=== PATIENT | male | born 1950 ===

== ENCOUNTER 2019-08-30 20:34 | Inpatient (IN) | payer OTHER ==
[~2019-08-30 20:34] MED LIST: Iopamidol-370 76% 500 ML 1 ML ONE
[2019-08-30 21:52] LABS: #Basophils 0.1 thou/uL (0.0-0.2); #Eosinphils 0.1 thou/uL (0.0-0.7); #Lymphocytes 2.5 thou/uL (1.20-3.40); #Monocytes 0.7 thou/uL (0.11-0.59); #Neutrophils 4.1 thou/uL (1.40-6.50); %Basophils 0.8 % (0.0-1.0); %Eosinophils 1.3 % (0.0-10.0); %Lymphocytes 33.7 % (21.0-51.0); %Monocytes 9.3 % (0.0-10.0); %Neutrophils 54.9 % (42.0-75.0); Hemoglobin 15.6 g/dL (14.0-18.0); Mean Corpuscular HGB CONC 33.2 g/dL (32.0-36.0); Mean Corpuscular Hemoglobin 29.9 pg (27.0-31.0); Mean Corpuscular Volume 90.2 fL (78.0-98.0); Platelet Count 207 thou/uL (130-400); RBC Distribution Width 13.3 % (11.5-14.5); Red Blood Cell (RBC) Count 5.21 mill/uL (4.70-6.10); White Blood Cell (WBC) Count 7.4 thou/uL (4.8-10.8)
[2019-08-30 21:54] LABS: Bacteria/HPF 4+ HPF (None Seen); Bilirubin Negative (Negative); Blood, Urine Trace (Negative); Clarity Turbid (Clear); Glucose, Urine (Dipstick) Normal (Negative); Ketone, Urine Negative (Negative); Leukocyte 500 Leu/uL (Negative); Nitrite 1+ (Negative); Protein, Urine (Dipstick) 50 mg/dL (Neg-Trace); Specific Gravity, Urine 1.019 (1.002-1.036); Squamous Epithelial None Seen HPF (0-3); Urobilinogen Normal mg/dL (Less than 2); WBC/HPF Greater than 50 HPF (0-3); pH, Urine 5.5 (5.0-9.0)
[2019-08-30] MEDS ORDERED: niCARdipine 20MG In NaCl 20 MG/200 ML BAG ONE (21:54)
[2019-08-30 22:14] LABS: ALT (SGPT) 26 U/L (8-55); AST (SGOT) 24 U/L (5-34); Alkaline Phosphatase 117 U/L (40-110); Anion Gap 15 mmol/L (10-20); BUN (Urea Nitrogen) 40 mg/dL (8.4-25.7); Bilirubin, Total 0.9 mg/dL (0.2-1.2); Calc. Creatinine Clearance 0 mL/min (70-130); Calcium 9.2 mg/dL (7.8-10.44); Carbon Dioxide 23 mmol/L (23-31); Chloride 105 mmol/L (98-107); Estimated GFR-MDRD 49; Glucose 94 mg/dL (80-115); Magnesium 2.2 mg/dL (1.6-2.6); Potassium 4.4 mmol/L (3.5-5.1); Sodium 139 mmol/L (136-145)
[2019-08-30] MEDS ORDERED: Morphine 4 MG/ML VIAL ONE (22:44)
[2019-08-30] MEDS ORDERED: cefTRIAXone\\ROCEPHIN 1 GM VIAL ONE (22:45)
--- NOTE | 2019-08-30 23:20 | CT ---
CT HEAD WITHOUT IV CONTRAST COMPARISON: None HISTORY: Altered mental status TECHNIQUE: Axial CT imaging at 5 mm intervals from vertex through skull base without contrast FINDINGS: There is mild cerebral volume loss. The ventricular system is dilated and out of proportion to the de gree of sulcal atrophy. This could be related to greater central cerebral atrophy, but normal pressure hydrocephalus is a possibility. There is confluent diminished attenuation in the periventric ular white matter which is most likely reflective of chronic small vessel ischemic changes. This is not thought to be related to transependymal flow of CSF. Low-density foci are seen in each thalamus related to lacunar infarctions of indeterminate age. There is no evidence of an acute cortical infarction, hemorrhage, mass effect, or midline shift. Visualized paranasal sinuses are clear. Osseous structures appear intact. IMPRESSION: 1. No acute intracranial abnormality demonstrated. 2. Chronic small vessel ischemic changes and cerebral volume loss. 3. Dilatation of the ventricular system which is out of proportion to the degree of sulcal atrophy. F indings may be related to greater central cerebral atrophy, but an element of normal pressure hydrocephalus is a possibility. 4. Lacunar infarctions in each thalamus of indeterminate age.
--- NOTE | 2019-08-30 23:32 | CT ---
EXAM: CT Aortic Dissection Protocol PROVIDED CLINICAL HISTORY: Patient with back pain and altered mental status. COMPARISON: None FINDINGS: Thoracic and abdominal aorta are normal in caliber. There is atherosclerotic plaque as well as athero sclerotic calcification seen in thoracic as well as involving the abdominal aorta and limited visualized iliac arteries. There is mild narrowing involving the most proximal celiac artery which may related to arcuate ligame nt. The inferior mesenteric artery is patent. Mild inflammatory stranding is seen surrounding the superior mesenteric artery greater inferior to the superior mesenteric artery which is nonspecific. T here is mild luminal narrowing involving the most proximal superior mesenteric artery. Findings could be related to vasculitis. Incidental note is made of a replaced right hepatic artery. Single pa tent bilateral renal arteries are visualized. Although there is mild atherosclerotic plaque along the common iliac arteries, no significant stenosi s is seen. No filling defects are seen in the central pulmonary arteries. However, the segmental and subsegmenta l pulmonary arteries are not well opacified for more adequate evaluation. Mildly prominent nonspecific right paratracheal lymph node is present measuring 12 mm in short axis d imension. Distal nonspecific nonenlarged mediastinal lymph nodes are also present. Emphysematous changes are seen within the lungs bilaterally greatest in the upper lobes. There are gr oundglass densities seen throughout the lungs which is nonspecific but may be attributable to volume loss as this exam is obtained in expiratory phase of imaging. The liver, spleen, pancreas, and left adrenal gland demonstrate a normal CT appearance. There is a small 1.3 cm nodule involving the right adrenal gland which does demonstrate attenuation c oefficient suggestive of an adrenal adenoma. There is mild bilateral hydronephrosis and mild dilatation of the visualized proximal ureters. 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 A proximally 3 mm nonobstructing calculus is present in the midportion right kidney. There is mild increased number of aortocaval lymph nodes which are not particularly enlarged. No free fluid or fluid collection is seen in the abdomen. IMPRESSION: 1. Inflammatory stranding seen adjacent to the proximal superior mesenteric artery with suggestion of slight wall thickening of the superior mesenteric artery in this region and mild narrowing of the lumen. Findings are overall nonspecific but may be related to vasculitis. 2. Mild increased number of aortocaval lymph nodes just inferior to the inflammatory stranding adjace nt to the superior mesenteric artery which may be reactive. 3. Thoracic and abdominal aorta are normal in caliber without evidence of an aortic dissection. Ather osclerotic vascular calcifications and plaque are seen. 4. Mild bilateral hydronephrosis and hydroureter of uncertain etiology. The mid and distal ureters ar e not imaged. 5. Nonobstructing right renal calculus.
[2019-08-31 00:09] LABS: SARS-CoV-2 NAA Rapid Test Not Detected (NotDetected)
--- NOTE | 2019-08-31 00:42 | PDOC.FPRHP ---
- History of Present Illness Chief Complaint: AMS History of Present Illness: Patient presents altered from long-term for UTI symptoms. Minimal history obtained from jail guard. Per the notes patient is normally alert and oriented however over the past several days has developed altered mental status and according to the guards he is not at his baseline. He has had elevated blood pressures over the past few days. He does have history of patel-resistant UTI in June. He states that he is urinating more than normal but denies fever, chills. Patients states he has had back pain for years, noting it has worsened as he ages. Patient notes he has chest pain and difficulty breathing chronically, but no new worsening of those symptoms. - Allergies/Adverse Reactions Allergies Allergy/AdvReac Type Severity Reaction Status Date / Time No Known Drug Allergies Allergy Unverified 08/31/19 02:11 - History PMHx: HTN PSHx: none FHx: unknown Social: used to smoke 1PPD x 30 years, heavy beer drinker - last one 20 years ago, no drug use - Review of Systems General: denies: fever/chills, night sweats Eyes: reports: other (chronic poor vision). denies: eye pain ENT: reports: other (chronic hearing difficulty). denies: nasal congestion, rhinorrhea Respiratory: reports: shortness of breath (chronic). denies: cough, congestion Cardiovascular: reports: chest pain (chronic) Gastrointestinal: denies: nausea, vomiting, diarrhea Genitourinary: reports: other (urinary frequency). denies: incontinence Skin: reports: rashes (on chest, itchy, has had for 2-3 years and has medications; notes he gets rashes on his elbows and face). denies: jaundice Musculoskeletal: denies: pain, tenderness Neurological: reports: other (confusion). denies: numbness, syncope Psychological: denies: anxiety, depression - Vital signs BP: 223/101, Pulse: 64, Resp: 18, Temp: 98.3 (Oral), Pain: 0, O2 sat: 98 on ( Room Air), BP: 185/89, Pulse: 66, Resp: 22, O2 sat: 98 on (Room Air), Time: 08/30/2019 22: 15. BP: 200/105, Pulse: 65, Resp: 23, O2 sat: 97 on (Room Air), Time: 08/30/2019 22: 00. BP: 233/104, MAP: 147, Pulse: 74, Resp: 27, O2 sat: 98 on (Room Air), Time: 08/29 21:30. BP: 200/101, Pulse: 63, Resp: 22, O2 sat: 98 on (Room Air), Time: 08/30/2019 21: 00. BP: 185/89, Time: 08/30/2019 22:16. BP: 205/95, Time: 08/30/2019 22:32. BP: 206/150, MAP: 168, Pulse: 78, Resp: 21, O2 sat: 98 on (Room Air), Time: 08/29 22:45. BP: 192/94, MAP: 126, Pulse: 75, Time: 08/30/2019 23:00. BP: 181/85, MAP: 117, Pulse: 81, Resp: 22, O2 sat: 99 on (Room Air), Time: 2019 23:15. BP: 205/95, Time: 08/30/2019 22:35. BP: 180/111, Time: 08/30/2019 23:33. BP: 172/72, Time: 08/30/2019 23:45. BP: 170/82, Pulse: 86, Resp: 20, O2 sat: 96 on (Room Air), Time: 08/31/2019 00: 15. BP: 172/98, Pulse: 80, Resp: 20, Temp: 98.5 (Oral), Pain: 0, O2 sat: 98 on ( Room Air), Time: 08/31/2019 00:30. Wt: 63.5 - Physical Exam Constitutional: NAD, other (AxO x 2) HEENT: normocephalic and atraumatic, other (L eye, decreased vision, L pupil reactive to light, pupil is elongated) Neck: supple, FROM Heart: RRR, no murmurs/rubs/gallops Lungs: CTAB, no respiratory distress Abdomen: soft, non-tender, bowel sounds present Musculoskeletal: ROM grossly normal Neurological: no focal deficit Skin: no jaundice, other (erythematous, dry, scaling rash on chest and face. Excoriation present on chest.) Heme/Lymphatic: no unusual bruising or bleeding, no purpura, no petechia Psychiatric: intact recent and remote memory FMR H&P: Results - Labs Result Diagrams: 08/30/19 21:44 08/30/19 21:44 Lab results: WBC 7.4 thou/uL (4.8-10.8) 08/30/19 21:44 Hgb 15.6 g/dL (14.0-18.0) 08/30/19 21:44 Hct 46.9 % (42.0-52.0) 08/30/19 21:44 MCV 90.2 fL (78.0-98.0) 08/30/19 21:44 Plt Count 207 thou/uL (130-400) 08/30/19 21:44 Neutrophils % 54.9 % (42.0-75.0) 08/30/19 21:44 Sodium 139 mmol/L (136-145) 08/30/19 21:44 Potassium 4.4 mmol/L (3.5-5.1) 08/30/19 21:44 Chloride 105 mmol/L (98-107) 08/30/19 21:44 Carbon Dioxide 23 mmol/L (23-31) 08/30/19 21:44 BUN 40 mg/dL (8.4-25.7) H 08/30/19 21:44 Creatinine 1.43 mg/dL (0.7-1.3) H 08/30/19 21:44 Glucose 94 mg/dL (80-115) 08/30/19 21:44 Lactic Acid 0.9 mmol/L (0.5-2.2) 08/30/19 21:44 Calcium 9.2 mg/dL (7.8-10.44) 08/30/19 21:44 Total Bilirubin 0.9 mg/dL (0.2-1.2) 08/30/19 21:44 AST 24 U/L (5-34) 08/30/19 21:44 ALT 26 U/L (8-55) 08/30/19 21:44 Alkaline Phosphatase 117 U/L (40-110) H 08/30/19 21:44 B-Natriuretic Peptide 196.4 pg/mL (0-100) H 08/30/19 21:44 Serum Total Protein 7.0 g/dL (5.8-8.1) 08/30/19 21:44 Albumin 4.0 g/dL (3.4-4.8) 08/30/19 21:44 Urine Ketones Negative mg/dL (Negative) 08/30/19 21: Urine Blood Trace (Negative) A 08/30/19 21: Urine Nitrite 1+ (Negative) A 08/30/19 21: Ur Leukocyte Esterase 500 Carol/uL (Negative) A 08/30/19: Urine RBC 7-10 HPF (0-3) A 08/30/19: Urine WBC Greater than 50 HPF (0-3) A 08/30/19 21: Ur Squamous Epith Cells None Seen HPF (0-3) 08/30/19: Urine Bacteria 4+ HPF (None Seen) A 08/30/19: troponin negative, repeat 0.029 - Radiology Interpretation CT scan - abdomen Status: image reviewed by me, report reviewed by me Additional comment: no AAA, SMA with irritation and regional lymph node involvement CT scan - head Status: image reviewed by me, report reviewed by me Additional comment: ventriculomegaly, no acute hemorrhage, old lacunar infarcts present FMR H&P: A/P - Plan This is a 69 yo M being admitted for HTN emergency. He has a pertinent history including: recurrent UTIs, HTN, DMII Consults: none SOFTWARE DEVELOPMENT COORDINATOR - Encephalopathy 2/2 HTN, may also be caused by infection, NPH, PRES - CTH showing ventriculomegaly Resp - O2 sats wnl on RA CV - Continue Cardene drip, wean as tolerated - Lisinopril 40 mg - Home BP medications, increase amlodipine 10 GI - SMA showing irritation with regional lymph node involvement - HCV, unclear if treated or not, normal liver enzymes /Renal - I/O: Strict - Recurrent UTI hx with CT showing mild blt hydronephrosis, prior records showing past UTI patel resistant, susceptible to imipenem and amikacin - asymptomatic bacteriuria, consider starting meropenem and ID consult if symptoms change/patient becomes febrile Infection -asymptomatic bacteriuria, if symptoms present, treat for UTI Endo - mild SSI Skin - rash likely seborrheic dermatitis - steroid/antifungal creme Lines/Tubes: 2 PIV Code status: DNR PPx: Lovenox Dispo: Admit to ICU for BP management on Cardene drip, LOS >48 hrs FMR H&P: Upper Level - Plan Date/Time: 08/31/19 0040 I, Alina Carballo MD, have evaluated this patient and agree with findings/plan as outlined by undergraduate internship resident. Pertinent changes/additions are listed here. This is a 69yo M who presents to the ER from [facility]. Minimal hx able to be obtained. Per the notes, patient is normally alert and oriented, but over the last several days has becomed altered. Patient also had elevated blood pressures over the past few days. Patient also complaining of back pain and confusion. He has a hx of UTI but his last notes with a positive UTI were from June and not current this UTI was patel resistant except for 1-2 abx. Denied any dysuria or blood in urine. Denies fever, chills. Patient reports vision loss in his L eye, but this has been present for 2 years. He denies SOB, chest pain, palpitations. Endorses "smokers cough." PHYSICAL EXAMINATION: General: NAD, alert and oriented x3 HEENT: EOMI; pupil on L ovoid and catarct present; nml R eye Neck: Supple. Full ROM. Heart/Cardiovascular System: RRR, Cap refill < 3 seconds, no rub, no murmur Lungs/Respiratory System: clear to auscultation bilaterally. No increased work of breathing. Room air. Abdomen/Gastro-Intestinal System: no abdominal tenderness, normal bowel sounds, no masses, no organomegaly Extremeties: Warm extremities. No cyanosis or edema. Neuro: No gross deficits appreciated Psychiatry: Awake, Alert and cooperative with exam Skin/ Integumentory: erythematous, scaly rash on ant chest and along hairline and nose on face Musculoskeletal: Full ROM, strength 4/5 in b/l LE This is a 69 yo M/F being admitted for HTN emergency. Consults: PT/OT SOFTWARE DEVELOPMENT COORDINATOR: - CT head: enlarged ventricles, lacunar infarctions in each thalamus. Possible NPH. Consider further work up with MRI, LP. Consider neuro consult. Patient with gait dysfunction, altered mentation, and incontinence. - PT/OT consulted - Patient initially altered, but axox2 on our exam. Resp - Satting well on RA CV - HTN Emergency. Start on drip: cardene at 2.5. Will ween as tolerated - Hx of HTN: Start lisinopril due to co-existing DM. Continue home meds- increase amlodipine. - BNP 196, no signs of fluid overload GI - CTA showing SMA vasculitis, reactive lymph notes present - Hx of Hep C - unsure if treated. AST/ALT nml. Can f/u outpatient. Heme - H/H: 15.6/46.9 /Renal - UA positive for: turbid, nitrite 1+, trace blood, leukocytes, bacteria 4+ - Based on records from half-way last UTI E coli R to many abx. U cx pending. - likely asymptomatic bacteruria. No dysuria or changes and incontinent frequently. Symptoms likely due to BPH. - BUN/Cr: 40/1.43, will give mIVF - CTA showing bilateral hydronephrosis. Possibly 2/2 BPH. Infection - Skin rash - appears to be seborrheic dermatitis on face/trunk. Will give medium potency steroid cream along with antifungual. Endo - hx of DMII- A1c pending - TSH pending Lines/Tubes: 2 peripheral IVs Code status: DNAR PPx: lovenox Dispo: admit to CCU, likely move out of the unit tomorrow when weened off the drip Addendum - Attending - Attending Attestation Date/Time: 08/31/19 1596 I personally evaluated the patient and discussed the management with the team. I agree with the History, Examination, Assessment and Plan documented above with any addition or exceptions noted below. No new urinary symptoms, longstanding prostate symptoms also c/w his imaging. Hold antibx for asymptomatic bacteriuria. He was not altered for me, but can continue gtt and transition to PO medications. Will follow closely.
[2019-08-31] MEDS ORDERED: Vancomycin 1 GM/200 ML BAG ONE (00:44)
[2019-08-31 01:22] LABS: Troponin I 0.029 ng/mL (< 0.028)
[2019-08-31] MEDS ORDERED: Dextrose 50% Abboject 50 ML SYRINGE SLOW IVP PRN ×2 (01:36→12:06)
[2019-08-31] MEDS ORDERED: Acetaminophen 650 MG Suppository PR PRN (01:36)
[2019-08-31] MEDS ORDERED: Ondansetron PF 4 MG/2 ML Vial IVP PRN (01:36)
[2019-08-31] MEDS ORDERED: Dextrose 5% in Water 1,000 ML IV PRN ×2 (01:36→12:06)
[2019-08-31] MEDS ORDERED: HumaLOG 300 UNITS/3 ML VIAL SC PRN ×3 (01:36→12:06)
[2019-08-31] MEDS ORDERED: niCARdipine 25 MG in Sodium Chloride 0.9% 250 ML 240 ML IVPB PRN (01:36)
[2019-08-31] MEDS ORDERED: Lisinopril 20 MG TAB PO SCH (02:52)
[2019-08-31] MEDS ORDERED: Amlodipine 10 MG TAB PO SCH (03:00)
[2019-08-31 04:05] LABS: Hemoglobin A1c 5.2 % (4.0-6.0)
[2019-08-31] MEDS: Lactated Ringer's 1,000 ML IV SCH ×2 (04:08→12:14)
[2019-08-31 04:21] LABS: Troponin I 0.034 ng/mL (< 0.028)
[2019-08-31] MEDS: Enoxaparin Sodium 40 MG/0.4 ML SYRINGE SC SCH (08:48)
[2019-08-31] MEDS ORDERED: Famotidine 20 MG TAB PO SCH (09:00)
[2019-08-31] MEDS ORDERED: Prevnar 13-Val Conj/PF 0.5 ML SYRINGE IM ONE (09:00)
[2019-08-31] MEDS: Acetaminophen 650 MG/20.3 ML UDCUP PO PRN ×2 (12:13→20:56)
[2019-08-31 13:42] LABS: Troponin I 0.032 ng/mL (< 0.028)
[2019-08-31] MEDS: Terazosin HCl 1 MG CAP PO SCH (20:56)
[2019-09-01] MEDS: Lactated Ringer's 1,000 ML IV SCH (00:08)
--- NOTE | 2019-09-01 07:30 | PDOC.FM ---
- Subjective Subjective: Unhappy this morning. Wants to return to retirement. - Objective MAR Reviewed: Yes Vital Signs & Weight: Vital Signs (12 hours) Temp Pulse Resp BP Pulse Ox 09/01/19 04:00 98.1 F 54 L 18 176/84 H 94 L 09/01/19 00:00 98.0 F 54 L 18 167/82 H 97 08/31/19 20:57 95 08/31/19 20:00 98.4 F 60 18 187/85 H 95 Weight Weight 74.1 kg Most Recent Monitor Data Heart Rate from ECG 78 NIBP 172/74 NIBP BP-Mean 106 Respiration from ECG 29 SpO2 96 I&O: 08/31/19 09/01/19 09/02/19 06:59 06:59 06:59 Intake Total 193 1040 Output Total 450 750 Balance -257 290 Result Diagrams: 08/30/19 21:44 08/30/19 21:44 Phys Exam - Physical Examination Constitutional: NAD HEENT: moist MMs Neck: no JVD, supple Respiratory: no wheezing, no rales, no rhonchi, clear to auscultation bilateral Cardiovascular: RRR, no significant murmur Gastrointestinal: soft, non-tender Musculoskeletal: no edema, pulses present Neurological: non-focal Psychiatric: normal affect, A&O x 3 Skin: no rash, normal turgor Dx/Plan (1) Encephalopathy Code(s): G93.40 - ENCEPHALOPATHY, UNSPECIFIED Status: Acute (2) Hypertensive urgency Code(s): I16.0 - HYPERTENSIVE URGENCY Status: Acute (3) Depression Code(s): F32.9 - MAJOR DEPRESSIVE DISORDER, SINGLE EPISODE, UNSPECIFIED Status : Acute (4) Hepatitis C Code(s): B19.20 - UNSPECIFIED VIRAL HEPATITIS C WITHOUT HEPATIC COMA Status: Acute - Plan Plan: HTN - Resumed home medications, increased amlodipine and added lisinopril. - Pressures have remained elevated. - Will add Nifedipine XR 30mg today, if pressures come down and stabilize will consider d/c. Asymptomatic bacteruria - patient has history of resistant UTI, [facility] showed sensitivity only to Amikacin, Ceftaz/Avibactam and Imipenem. - Culture showing gram negative rods. - Continues to deny symptoms AMS, resolved - A&O x3 - CT head: enlarged ventricles, lacunar infarctions in each thalamus. Sebhorrheic dermatitis - on steroid cream/antifungal cream H/o DM II - however a1c is 5.1 and his medication list did not include diabetic medications. H/o hep c, aware Code status: DNAR PPx: lovenox Dispo: Stable, inpatient. Addendum - Attending - Attending Attestation Date/Time: 09/01/19 1201 I personally evaluated the patient and discussed the management with Dr. Schmid. I agree with the History, Examination, Assessment and Plan documented above with any addition or exceptions noted below. Patient improved. Making some medication adjustments for better HTN control. If improved this afternoon, stable for discharge.
[2019-09-01] MEDS ORDERED: Amlodipine 10 MG TAB PO SCH (09:00)
[2019-09-01] MEDS: Lisinopril 20 MG TAB PO SCH (09:15)
[2019-09-01] MEDS: Enoxaparin Sodium 40 MG/0.4 ML SYRINGE SC SCH ×2 (09:16→09:23)
[2019-09-01] MEDS ORDERED: NIFEdipine XL 30 MG TAB PO SCH (09:45)
[2019-09-01 15:14] LABS: Hemoglobin 14.2 g/dL (14.0-18.0); Mean Corpuscular Hemoglobin 29.8 pg (27.0-31.0); Mean Corpuscular Volume 90.3 fL (78.0-98.0); Mean Platelet Volume 6.9 fL (7.4-10.4); Platelet Count 185 thou/uL (130-400); RBC Distribution Width 13.3 % (11.5-14.5); Red Blood Cell (RBC) Count 4.78 mill/uL (4.70-6.10); White Blood Cell (WBC) Count 6.5 thou/uL (4.8-10.8)
[2019-09-01 15:32] LABS: ALT (SGPT) 21 U/L (8-55); AST (SGOT) 21 U/L (5-34); Albumin 3.4 g/dL (3.4-4.8); Alkaline Phosphatase 101 U/L (40-110); Anion Gap 10 mmol/L (10-20); BUN (Urea Nitrogen) 23 mg/dL (8.4-25.7); Bilirubin, Total 0.9 mg/dL (0.2-1.2); Calc. Creatinine Clearance 52 mL/min (70-130); Calcium 8.3 mg/dL (7.8-10.44); Carbon Dioxide 23 mmol/L (23-31); Chloride 107 mmol/L (98-107); Estimated GFR-MDRD 51; Globulin 2.9 g/dL (2.4-3.5); Glucose 152 mg/dL (80-115); Potassium 3.9 mmol/L (3.5-5.1); Protein, Total 6.3 g/dL (5.8-8.1); Sodium 136 mmol/L (136-145)
[2019-09-01 15:45] LABS: Eosinophils 2 % (0-10); Lymphocytes 29 % (21-51); MDiff Complete? YES; Monocytes 9 % (0-10); Neutrophil 57 % (42-75); Platelet Morphology Comment Appears Adequate; RBC Morphology Normal; Reactive Lymphocytes 1 % (0-10)
[2019-09-01] MEDS: Acetaminophen 650 MG/20.3 ML UDCUP PO PRN (17:33)
[2019-09-01] MEDS: Terazosin HCl 1 MG CAP PO SCH (22:22)
[2019-09-02] MEDS: Acetaminophen 650 MG/20.3 ML UDCUP PO PRN ×2 (00:28→16:11)
--- NOTE | 2019-09-02 06:39 | PDOC.FM ---
- Subjective Subjective: Doing well this morning. States he has no concerns. - Objective MAR Reviewed: Yes Vital Signs & Weight: Vital Signs (12 hours) Temp Pulse Resp BP Pulse Ox 09/02/19 04:00 98.1 F 58 L 20 162/79 H 96 09/02/19 00:00 98.0 F 67 18 189/83 H 94 L 09/01/19 19:47 97.8 F 67 16 178/85 H 96 Weight Weight 74.1 kg Most Recent Monitor Data Heart Rate from ECG 78 NIBP 172/74 NIBP BP-Mean 106 Respiration from ECG 29 SpO2 96 I&O: 08/31/19 09/01/19 09/02/19 06:59 06:59 06:59 Intake Total 193 1040 720 Output Total 835 334 6048 Balance -257 290 -555 Result Diagrams: 09/02/19 08:11 09/02/19 08:11 Phys Exam - Physical Examination Constitutional: NAD HEENT: PERRLA, moist MMs Neck: supple Respiratory: no wheezing, no rales, no rhonchi, clear to auscultation bilateral Cardiovascular: RRR, no significant murmur Gastrointestinal: soft, non-tender Musculoskeletal: no edema Neurological: non-focal Psychiatric: normal affect, A&O x 3 Skin: no rash, normal turgor Dx/Plan (1) Encephalopathy Code(s): G93.40 - ENCEPHALOPATHY, UNSPECIFIED Status: Acute (2) Hypertensive urgency Code(s): I16.0 - HYPERTENSIVE URGENCY Status: Acute (3) Depression Code(s): F32.9 - MAJOR DEPRESSIVE DISORDER, SINGLE EPISODE, UNSPECIFIED Status : Acute (4) Hepatitis C Code(s): B19.20 - UNSPECIFIED VIRAL HEPATITIS C WITHOUT HEPATIC COMA Status: Acute - Plan Plan: HTN - Changed home regimen. - Now on Lisinopril 20mg and Nifedipine 60mg. - Discontinued Amlodipine 5mg. Asymptomatic bacteruria - patient has history of resistant UTI, [facility] showed sensitivity only to Amikacin, Ceftaz/Avibactam and Imipenem. - Culture showing gram negative rods. - Continues to deny symptoms AMS, resolved - A&O x3 - CT head: enlarged ventricles, lacunar infarctions in each thalamus. Sebhorrheic dermatitis - on steroid cream/antifungal cream H/o DM II - however a1c is 5.1 and his medication list did not include diabetic medications. H/o hep c, aware Dispo: Patient was medically stable for d/c yesterday, however he is requiring assistance with transfers and some activities. [facility] stated [facility] need [facility] bed. I encouraged the patient to work with PT this morning and will start looking for infirmary bed vs getting patient physically stable for independent activities. Code status: DNAR PPx: shankar Addendum - Attending - Attending Attestation Date/Time: 09/02/19 1210 I personally evaluated the patient and discussed the management with Dr. Schmid. I agree with the History, Examination, Assessment and Plan documented above with any addition or exceptions noted below. Patient admitted for HTN emergency. BP improved. He is overall stable for discharge but waiting for infirmary bed with residential due to difficulty with ambulation. Once that is set up will be ready for dc.
[2019-09-02 08:44] LABS: ALT (SGPT) 22 U/L (8-55); AST (SGOT) 22 U/L (5-34); Albumin 3.5 g/dL (3.4-4.8); Alkaline Phosphatase 106 U/L (40-110); Anion Gap 12 mmol/L (10-20); BUN (Urea Nitrogen) 23 mg/dL (8.4-25.7); Calc. Creatinine Clearance 57 mL/min (70-130); Calcium 8.5 mg/dL (7.8-10.44); Carbon Dioxide 23 mmol/L (23-31); Chloride 106 mmol/L (98-107); Estimated GFR-MDRD 57; Globulin 2.9 g/dL (2.4-3.5); Glucose 148 mg/dL (80-115); Potassium 3.5 mmol/L (3.5-5.1); Protein, Total 6.4 g/dL (5.8-8.1); Sodium 137 mmol/L (136-145)
[2019-09-02] MEDS ORDERED: NIFEdipine XL 60 MG TAB PO SCH (09:00)
[2019-09-02] MEDS: Lisinopril 20 MG TAB PO SCH (09:12)
[2019-09-02] MEDS: Enoxaparin Sodium 40 MG/0.4 ML SYRINGE SC SCH (09:13)
[2019-09-02 09:34] LABS: Band 6 % (5-11); Eosinophils 9 % (0-10); Hemoglobin 14.6 g/dL (14.0-18.0); Lymphocytes 24 % (21-51); MDiff Complete? YES; Mean Corpuscular HGB CONC 33.6 g/dL (32.0-36.0); Mean Corpuscular Hemoglobin 30.4 pg (27.0-31.0); Mean Corpuscular Volume 90.4 fL (78.0-98.0); Monocytes 9 % (0-10); Neutrophil 51 % (42-75); Platelet Count 197 thou/uL (130-400); Platelet Morphology Comment Appears Adequate; RBC Distribution Width 13.2 % (11.5-14.5); RBC Morphology Normal; Reactive Lymphocytes 1 % (0-10); Red Blood Cell (RBC) Count 4.81 mill/uL (4.70-6.10); White Blood Cell (WBC) Count 6.1 thou/uL (4.8-10.8)
[2019-09-02] MEDS: Senokot S 8.6-50 MG TAB PO PRN (23:02)
[2019-09-02] MEDS: Terazosin HCl 1 MG CAP PO SCH (23:02)
--- NOTE | 2019-09-03 06:11 | PDOC.FM ---
- Subjective Subjective: Patient doing well this morning, no complaints. Worked with PT yesterday and agreeable to working with them again today. - Objective Vital Signs & Weight: Vital Signs (12 hours) Temp Pulse Resp BP Pulse Ox 09/03/19 04:16 97.8 F 69 18 185/85 H 96 09/02/19 23:06 97.4 F L 68 18 168/80 H 95 Weight Weight 70.534 kg Most Recent Monitor Data Heart Rate from ECG 78 NIBP 172/74 NIBP BP-Mean 106 Respiration from ECG 29 SpO2 96 I&O: 09/01/19 09/02/19 09/03/19 06:59 06:59 06:59 Intake Total 7997 947 5749 Output Total 750 6245 1965 Balance 055 -836 -635 Result Diagrams: 09/03/19 16:57 09/03/19 16:57 Phys Exam - Physical Examination Constitutional: NAD HEENT: moist MMs, sclera anicteric Neck: supple, full ROM Respiratory: no wheezing, clear to auscultation bilateral Cardiovascular: RRR, no significant murmur Gastrointestinal: soft, non-tender Musculoskeletal: no edema, pulses present Neurological: non-focal, moves all 4 limbs Psychiatric: normal affect, A&O x 3 Skin: no rash, normal turgor Dx/Plan (1) Depression Code(s): F32.9 - MAJOR DEPRESSIVE DISORDER, SINGLE EPISODE, UNSPECIFIED Status : Acute (2) Encephalopathy Code(s): G93.40 - ENCEPHALOPATHY, UNSPECIFIED Status: Acute (3) Hepatitis C Code(s): B19.20 - UNSPECIFIED VIRAL HEPATITIS C WITHOUT HEPATIC COMA Status: Acute (4) Hypertensive urgency Code(s): I16.0 - HYPERTENSIVE URGENCY Status: Acute - Plan Plan: Patient is a 69M with PMHx of Hep C, HTN, depression, vasectomy admitted for: #HTN - Changed home regimen. - Now on Lisinopril 20mg, Nifedipine 60mg, and verapamil. - Moved nifedipine to pm dosing for more coverage - Discontinued Amlodipine 5mg. #Asymptomatic bacteruria - patient has history of resistant UTI, [facility] showed sensitivity only to Amikacin, Ceftaz/Avibactam and Imipenem. - Culture showing gram negative rods. - Continues to deny symptoms #AMS, resolved - A&O x3 - CT head: enlarged ventricles, lacunar infarctions in each thalamus. #Sebhorrheic dermatitis - on steroid cream/antifungal cream #H/o DM II - however a1c is 5.1 and his medication list did not include diabetic medications. #H/o hep c, aware Code status: DNAR PPx: lovenox Dispo: Patient is medically stable for d/c, however he is requiring assistance with transfers and some activities. [facility] bed. Patient worked with PT yesterday, and PT recommended continued PT with assistance from a rolling walker. Continue to encourage the patient to work with PT and will continue looking for infirmary bed vs getting patient physically stable for independent activities. Addendum - Attending - Attending Attestation Date/Time: 09/03/19 5228 I personally evaluated the patient and discussed the management with Dr. Lora I agree with the History, Examination, Assessment and Plan documented above with any addition or exceptions noted below. BP improved. Stable for d/c. Awaiting infirmary bed
[2019-09-03] MEDS: Enoxaparin Sodium 40 MG/0.4 ML SYRINGE SC SCH (09:01)
[2019-09-03] MEDS: Lisinopril 20 MG TAB PO SCH (09:01)
[2019-09-03] MEDS: Acetaminophen 650 MG/20.3 ML UDCUP PO PRN (09:02)
[2019-09-03 17:13] LABS: Hemoglobin 16.3 g/dL (14.0-18.0); Mean Corpuscular HGB CONC 33.8 g/dL (32.0-36.0); Mean Corpuscular Hemoglobin 30.3 pg (27.0-31.0); Mean Corpuscular Volume 89.4 fL (78.0-98.0); Mean Platelet Volume 6.8 fL (7.4-10.4); Platelet Count 216 thou/uL (130-400); RBC Distribution Width 13.1 % (11.5-14.5); White Blood Cell (WBC) Count 6.6 thou/uL (4.8-10.8)
[2019-09-03 17:30] LABS: ALT (SGPT) 23 U/L (8-55); AST (SGOT) 24 U/L (5-34); Albumin 3.8 g/dL (3.4-4.8); Alkaline Phosphatase 120 U/L (40-110); Anion Gap 12 mmol/L (10-20); BUN (Urea Nitrogen) 33 mg/dL (8.4-25.7); Bilirubin, Total 1.1 mg/dL (0.2-1.2); Calc. Creatinine Clearance 52 mL/min (70-130); Calcium 9.2 mg/dL (7.8-10.44); Carbon Dioxide 23 mmol/L (23-31); Chloride 106 mmol/L (98-107); Estimated GFR-MDRD 54; Globulin 3.4 g/dL (2.4-3.5); Glucose 98 mg/dL (80-115); Potassium 4.3 mmol/L (3.5-5.1); Protein, Total 7.2 g/dL (5.8-8.1); Sodium 137 mmol/L (136-145)
[2019-09-03 17:32] LABS: Band 6 % (5-11); Lymphocytes 17 % (21-51); MDiff Complete? YES; Monocytes 5 % (0-10); Neutrophil 56 % (42-75); Platelet Morphology Comment Appears Adequate; RBC Morphology Normal; Reactive Lymphocytes 16 % (0-10)
[2019-09-03] MEDS ORDERED: hydrALAZINE 20 MG/ML VIAL SLOW IVP PRN (18:38)
[2019-09-03] MEDS ORDERED: Labetalol HCl 100 MG/20 ML VIAL SLOW IVP PRN (18:40)
[2019-09-03] MEDS: Terazosin HCl 1 MG CAP PO SCH (20:49)
[2019-09-03] MEDS ORDERED: cloNIDine 0.1 MG TAB PO SCH (21:00)
[2019-09-03] MEDS ORDERED: NIFEdipine XL 60 MG TAB PO SCH (21:00)
[2019-09-03] MEDS ORDERED: Haloperidol Lactate 5 MG/ML VIAL IM PRN (21:30)
[2019-09-03] MEDS ORDERED: Haloperidol Lactate 5 MG/ML VIAL IM SCH (21:31)
[2019-09-03] MEDS ORDERED: Haloperidol 5 MG TAB PO SCH (21:46)
[2019-09-03] MEDS ORDERED: Haloperidol 5 MG TAB PO PRN (22:45)
[2019-09-04] MEDS: Acetaminophen 650 MG/20.3 ML UDCUP PO PRN (05:14)
--- NOTE | 2019-09-04 06:08 | PDOC.FM ---
- Subjective Subjective: Patient reports that he is doing okay. He developed a cough overnight that kept him up throughout the night. No other complaints. - Objective Vital Signs & Weight: Vital Signs (12 hours) Temp Pulse Resp BP BP BP Pulse Ox 09/03/19 23:10 152/76 H 09/03/19 21:57 181/85 H 09/03/19 20:33 97.7 F 69 18 181/85 H 95 09/03/19 19:19 65 09/03/19 18:33 97.4 F L 65 16 172/78 H 98 Weight Weight 23 kg Most Recent Monitor Data Heart Rate from ECG 78 NIBP 172/74 NIBP BP-Mean 106 Respiration from ECG 29 SpO2 96 I&O: 09/02/19 09/03/19 09/04/19 06:59 06:59 06:59 Intake Total 720 1050 600 Output Total 1275 1965 Balance -555 -531 600 Result Diagrams: 09/04/19 11:25 09/04/19 11:25 Phys Exam - Physical Examination Constitutional: NAD HEENT: moist MMs, sclera anicteric Neck: supple, full ROM Respiratory: no wheezing decreased breath sounds throughout Cardiovascular: RRR, no significant murmur Gastrointestinal: soft, non-tender Musculoskeletal: no edema, pulses present Neurological: non-focal, moves all 4 limbs Psychiatric: normal affect, A&O x 3 Skin: no rash, normal turgor Dx/Plan (1) Depression Code(s): F32.9 - MAJOR DEPRESSIVE DISORDER, SINGLE EPISODE, UNSPECIFIED Status : Acute (2) Encephalopathy Code(s): G93.40 - ENCEPHALOPATHY, UNSPECIFIED Status: Acute (3) Hepatitis C Code(s): B19.20 - UNSPECIFIED VIRAL HEPATITIS C WITHOUT HEPATIC COMA Status: Acute (4) Hypertensive urgency Code(s): I16.0 - HYPERTENSIVE URGENCY Status: Acute - Plan Plan: Patient is a 69M with PMHx of Hep C, HTN, depression, vasectomy admitted for: #HTN - Changed home regimen. - Now on Lisinopril 20mg, Nifedipine 60mg, and verapamil. - Moved nifedipine to pm dosing for more coverage, increased to 90mg - Discontinued Amlodipine 5mg. - Patient moved to medical floor yesterday 2/2 non-compliance with telemetry - Continues to be stable for discharge #Asymptomatic bacteruria - patient has history of resistant UTI, culture from most recent at the [facility] showed sensitivity only to Amikacin, Ceftaz/Avibactam and Imipenem. - Culture showing gram negative rods. - Continues to deny symptoms #New Cough -patient developed new cough overnight -VSS -CXR pending -cheri negrete -incentive spirometry #AMS, resolved - A&O x3 - CT head: enlarged ventricles, lacunar infarctions in each thalamus. #Sebhorrheic dermatitis - on steroid cream/antifungal cream #H/o DM II - however a1c is 5.1 and his medication list did not include diabetic medications. #H/o hep c, aware #Deconditioning -Patient is benefiting from PT while in the hospital, PT reports that patient is making progress to goals -Patient is stable for d/c and reportedly will need an infirmary bed to continue to work with PT to help with transfers Code status: DNAR PPx: lovenox Dispo: Patient is medically stable for d/c, however he is requiring assistance with transfers and some activities. The sn[facility] stated he would need an [facility]irmary bed. Patient has worked with PT, and PT recommended continued PT with assistance from a rolling walker. Continue to encourage the patient to work with PT and will continue looking for infirmary bed vs getting patient physically stable for independent activities. Addendum - Attending - Attending Attestation Date/Time: 09/04/19 5742 I personally evaluated the patient and discussed the management with Dr. Lora I agree with the History, Examination, Assessment and Plan documented above with any addition or exceptions noted below. HTN- elevated bp overnight- increase procardia dose. Cough- lungs clear and CXR negative. treat symptomatically Awaiting infirmary bed.
--- NOTE | 2019-09-04 08:31 | RAD ---
PORTABLE CHEST: COMPARISON: 04/05/2019 study. HISTORY: New-onset cough. FINDINGS: Heart size is borderline. There are atherosclerotic changes of the aorta. There are chronic-appeari ng lung changes. I do not see any definite focal infiltrative lung process. IMPRESSION: Chronic lung change. POS: HANK
[2019-09-04] MEDS: Enoxaparin Sodium 40 MG/0.4 ML SYRINGE SC SCH (09:13)
[2019-09-04] MEDS: Lisinopril 20 MG TAB PO SCH (09:17)
[2019-09-04] MEDS: Benzonatate 100 MG CAP PO SCH ×2 (09:17→16:45)
[2019-09-04 11:37] LABS: Hemoglobin 15.3 g/dL (14.0-18.0); Mean Corpuscular HGB CONC 33.6 g/dL (32.0-36.0); Mean Corpuscular Hemoglobin 30.3 pg (27.0-31.0); Mean Corpuscular Volume 90.1 fL (78.0-98.0); Platelet Count 209 thou/uL (130-400); Red Blood Cell (RBC) Count 5.04 mill/uL (4.70-6.10); White Blood Cell (WBC) Count 7.5 thou/uL (4.8-10.8)
[2019-09-04 11:52] LABS: Eosinophils 4 % (0-10); Lymphocytes 25 % (21-51); MDiff Complete? YES; Monocytes 17 % (0-10); Neutrophil 54 % (42-75)
[2019-09-04 11:55] LABS: ALT (SGPT) 21 U/L (8-55); AST (SGOT) 19 U/L (5-34); Albumin 3.6 g/dL (3.4-4.8); Alkaline Phosphatase 104 U/L (40-110); Anion Gap 11 mmol/L (10-20); BUN (Urea Nitrogen) 25 mg/dL (8.4-25.7); Bilirubin, Total 1.1 mg/dL (0.2-1.2); Calc. Creatinine Clearance 17 mL/min (70-130); Calcium 9.1 mg/dL (7.8-10.44); Carbon Dioxide 24 mmol/L (23-31); Chloride 106 mmol/L (98-107); Estimated GFR-MDRD 55; Glucose 96 mg/dL (80-115); Potassium 3.9 mmol/L (3.5-5.1); Protein, Total 6.6 g/dL (5.8-8.1); Sodium 137 mmol/L (136-145)
[2019-09-04] MEDS ORDERED: Benzonatate 100 MG CAP PO PRN (18:20)
[2019-09-04] MEDS: Terazosin HCl 1 MG CAP PO SCH (20:41)
[2019-09-04] MEDS: NIFEdipine XL 90 MG TAB PO SCH (20:42)
--- NOTE | 2019-09-05 07:09 | PDOC.FM ---
- Subjective Subjective: Pt is sitting up in bed eating breakfast upon entry to the room. Pt states he has been working well with PT/OT. states, "he is doing well," denies CP, SOB, Abd pain. BP's 150's-130's overnight. no acute overnight events. - Objective Vital Signs & Weight: Vital Signs (12 hours) Temp Pulse Resp BP BP BP Pulse Ox 09/05/19 04:06 97.8 F 95 19 139/87 92 L 09/04/19 20:42 59 L 152/79 H 09/04/19 20:00 96 09/04/19 19:15 97.5 F L 59 L 17 152/79 H 96 Weight Weight 73.142 kg Most Recent Monitor Data Heart Rate from ECG 78 NIBP 172/74 NIBP BP-Mean 106 Respiration from ECG 29 SpO2 96 I&O: 09/04/19 09/05/19 09/06/19 06:59 06:59 06:59 Intake Total 1335 500 Output Total 950 Balance 1335 -450 Result Diagrams: 09/04/19 11:25 09/04/19 11:25 Phys Exam - Physical Examination Constitutional: NAD HEENT: moist MMs Neck: supple, full ROM Respiratory: no wheezing, no rales, no rhonchi, clear to auscultation bilateral Cardiovascular: RRR, no significant murmur, no rub Gastrointestinal: soft, non-tender, positive bowel sounds Musculoskeletal: no edema, pulses present Neurological: non-focal, moves all 4 limbs Psychiatric: normal affect, A&O x 3 Skin: no rash, normal turgor, cap refill <2 seconds Dx/Plan (1) Depression Code(s): F32.9 - MAJOR DEPRESSIVE DISORDER, SINGLE EPISODE, UNSPECIFIED Status : Acute (2) Hepatitis C Code(s): B19.20 - UNSPECIFIED VIRAL HEPATITIS C WITHOUT HEPATIC COMA Status: Acute (3) Hypertensive urgency Code(s): I16.0 - HYPERTENSIVE URGENCY Status: Acute - Plan Plan: Patient is a 69M with PMHx of Hep C, HTN, admitted for HTN urgency #HTN, improving. - Changed home regimen. - Now on Lisinopril 20mg, Nifedipine 90mg, and verapamil. - Moved nifedipine to pm dosing for more coverage, increased to 90mg - Discontinued Amlodipine 5mg. - Patient moved to medical floor 09/02 2/2 non-compliance with telemetry - Continues to be stable for discharge #Asymptomatic bacteruria - patient has history of resistant UTI, [facility] showed sensitivity only to Amikacin, Ceftaz/Avibactam and Imipenem. - Culture showing gram negative rods. - Continues to deny symptoms #New Cough -patient developed new cough -VSS -CXR chronic lung changes, but no acute process. -tessalon pearls -incentive spirometry #encephalopathy 2/2 HTN urgency, resolved - A&O x3 - CT head: enlarged ventricles, lacunar infarctions in each thalamus. - started atorvastatin 40 mg and asa 81 mg daily, 09/04. #Sebhorrheic dermatitis - on steroid cream/antifungal cream #H/o DM II - however a1c is 5.1 and his medication list did not include diabetic medications. - diet controlled. #H/o hep c, aware #Deconditioning -Patient is benefiting from PT while in the hospital, PT reports that patient is making progress to goals -Patient is stable for d/c and reportedly will need an infirmary bed to continue to work with PT to help with transfers Code status: DNAR PPx: lovenox Dispo: Patient is medically stable for d/c, however he is requiring assistance with transfers and some activities. The senior care stated he would need an infirmary bed. Patient has worked with PT, and PT recommended continued PT with assistance from a rolling walker. Continue to encourage the patient to work with PT and will continue looking for infirmary bed vs getting patient physically stable for independent activities. Addendum - Attending - Attending Attestation Date/Time: 09/05/19 8176 I personally evaluated the patient and discussed the management with Dr. De La Torre. I agree with the History, Examination, Assessment and Plan documented above with any addition or exceptions noted below. The patient is doing well overall. He is deconditioned and per detention, needs an infirmary bed. He is stable to discharge when that becomes available. Otherwise, he will continue working with therapy to improve strength.
[2019-09-05] MEDS: Lisinopril 20 MG TAB PO SCH (09:21)
[2019-09-05] MEDS: Aspirin 81 mg Enteric Coated Tablet PO SCH (09:22)
[2019-09-05] MEDS: Enoxaparin Sodium 40 MG/0.4 ML SYRINGE SC SCH (09:23)
[2019-09-05] MEDS: Senokot S 8.6-50 MG TAB PO PRN (09:26)
[2019-09-05 12:00] LABS: ALT (SGPT) 21 U/L (8-55); AST (SGOT) 24 U/L (5-34); Albumin 3.6 g/dL (3.4-4.8); Alkaline Phosphatase 107 U/L (40-110); Anion Gap 11 mmol/L (10-20); BUN (Urea Nitrogen) 30 mg/dL (8.4-25.7); Bilirubin, Total 1.1 mg/dL (0.2-1.2); Calc. Creatinine Clearance 48 mL/min (70-130); Calcium 8.8 mg/dL (7.8-10.44); Carbon Dioxide 24 mmol/L (23-31); Chloride 105 mmol/L (98-107); Estimated GFR-MDRD 47; Glucose 99 mg/dL (80-115); Potassium 3.8 mmol/L (3.5-5.1); Protein, Total 6.6 g/dL (5.8-8.1); Sodium 136 mmol/L (136-145)
[2019-09-05 13:14] LABS: Hemoglobin 14.6 g/dL (14.0-18.0); Mean Corpuscular HGB CONC 33.4 g/dL (32.0-36.0); Mean Platelet Volume 6.8 fL (7.4-10.4); Platelet Count 219 thou/uL (130-400); RBC Distribution Width 13.1 % (11.5-14.5); Red Blood Cell (RBC) Count 4.86 mill/uL (4.70-6.10); White Blood Cell (WBC) Count 8.3 thou/uL (4.8-10.8)
[2019-09-05 13:27] LABS: Band 1 % (5-11); Eosinophils 5 % (0-10); Lymphocytes 23 % (21-51); MDiff Complete? YES; Monocytes 13 % (0-10); Neutrophil 56 % (42-75); Platelet Morphology Comment Appears Adequate; RBC Morphology Normal; Reactive Lymphocytes 2 % (0-10)
[2019-09-05] MEDS: Terazosin HCl 1 MG CAP PO SCH (19:18)
[2019-09-05] MEDS: NIFEdipine XL 90 MG TAB PO SCH (19:18)
[2019-09-05] MEDS: Atorvastatin Calcium 40 MG TAB PO SCH (19:20)
[2019-09-06 06:40] LABS: Band 5 % (5-11); Eosinophils 1 % (0-10); Hemoglobin 14.8 g/dL (14.0-18.0); Lymphocytes 32 % (21-51); MDiff Complete? YES; Mean Corpuscular Hemoglobin 29.7 pg (27.0-31.0); Mean Corpuscular Volume 90.1 fL (78.0-98.0); Mean Platelet Volume 7.1 fL (7.4-10.4); Monocytes 11 % (0-10); Neutrophil 51 % (42-75); Platelet Count 198 thou/uL (130-400); Platelet Morphology Comment Appears Adequate; Red Blood Cell (RBC) Count 4.96 mill/uL (4.70-6.10)
[2019-09-06 06:51] LABS: ALT (SGPT) 19 U/L (8-55); AST (SGOT) 19 U/L (5-34); Albumin 3.5 g/dL (3.4-4.8); Alkaline Phosphatase 107 U/L (40-110); Anion Gap 11 mmol/L (10-20); BUN (Urea Nitrogen) 27 mg/dL (8.4-25.7); Bilirubin, Total 0.9 mg/dL (0.2-1.2); Calc. Creatinine Clearance 55 mL/min (70-130); Calcium 8.7 mg/dL (7.8-10.44); Carbon Dioxide 24 mmol/L (23-31); Chloride 107 mmol/L (98-107); Estimated GFR-MDRD 56; Globulin 2.9 g/dL (2.4-3.5); Glucose 84 mg/dL (80-115); Potassium 3.8 mmol/L (3.5-5.1); Protein, Total 6.4 g/dL (5.8-8.1); Sodium 138 mmol/L (136-145)
--- NOTE | 2019-09-06 07:09 | PDOC.FM ---
- Subjective Subjective: no acute overnight events bed [facility] approved and pending pickup. VSS. PT is resting comfortably upon entry to the room. He has no complaints. - Objective MAR Reviewed: Yes Vital Signs & Weight: Vital Signs (12 hours) Pulse BP Pulse Ox 09/05/19 20:00 93 L 09/05/19 19:18 63 159/75 H Weight Weight 72.478 kg Most Recent Monitor Data Heart Rate from ECG 78 NIBP 172/74 NIBP BP-Mean 106 Respiration from ECG 29 SpO2 96 I&O: 09/05/19 09/06/19 09/07/19 06:59 06:59 06:59 Intake Total 500 1500 Output Total 950 1200 Balance -450 300 Result Diagrams: 09/06/19 05:54 09/06/19 05:54 Phys Exam - Physical Examination Constitutional: NAD HEENT: moist MMs, sclera anicteric Neck: no JVD, supple Respiratory: no wheezing, no rales, no rhonchi, clear to auscultation bilateral Cardiovascular: RRR, no significant murmur Gastrointestinal: soft, non-tender, no distention, positive bowel sounds Musculoskeletal: no edema, pulses present Neurological: non-focal, normal sensation, moves all 4 limbs Psychiatric: normal affect, A&O x 3 Skin: no rash, normal turgor Dx/Plan (1) Depression Code(s): F32.9 - MAJOR DEPRESSIVE DISORDER, SINGLE EPISODE, UNSPECIFIED Status : Acute (2) Hepatitis C Code(s): B19.20 - UNSPECIFIED VIRAL HEPATITIS C WITHOUT HEPATIC COMA Status: Acute (3) Hypertensive urgency Code(s): I16.0 - HYPERTENSIVE URGENCY Status: Acute - Plan Plan: Patient is a 69M with PMHx of Hep C, HTN, admitted for HTN urgency #HTN, improving. - Changed home regimen. - Now on Lisinopril 20mg, Nifedipine 90mg, and verapamil. - Moved nifedipine to pm dosing for more coverage, increased to 90mg - Discontinued Amlodipine 5mg. - Patient moved to medical floor 09/02 2/2 non-compliance with telemetry - Continues to be stable for discharge #Asymptomatic bacteruria - patient has history of resistant UTI, culture from [facility] recent at the [facility] showed sensitivity only to Amikacin, Ceftaz/Avibactam and Imipenem. - Culture showing gram negative rods. - Continues to deny symptoms #New Cough -patient developed new cough -VSS -CXR chronic lung changes, but no acute process. -tessalon pearls -incentive spirometry #encephalopathy 2/2 HTN urgency, resolved - A&O x3 - CT head: enlarged ventricles, lacunar infarctions in each thalamus. - started atorvastatin 40 mg and asa 81 mg daily, 09/04. #Sebhorrheic dermatitis - on steroid cream/antifungal cream #H/o DM II - however a1c is 5.1 and his medication list did not include diabetic medications. - diet controlled. #H/o hep c, aware #Deconditioning -Patient is benefiting from PT while in the hospital, PT reports that patient is making progress to goals -Patient is stable for d/c and reportedly will need an infirmary bed to continue to work with PT to help with transfers Code status: DNAR PPx: lovenox Dispo: Patient is medically stable for d/c, however he is requiring assistance with transfers and some activities. Plan d/c to infirmary bed. CM states pending bed, already approved. Addendum - Attending - Attending Attestation Date/Time: 09/06/19 2088 I personally evaluated the patient and discussed the management with Dr. De La Torre. I agree with the History, Examination, Assessment and Plan documented above with any addition or exceptions noted below. The patient was resting comfortably. No concerns. Awaiting infirmary bed.
[2019-09-06] MEDS: Enoxaparin Sodium 40 MG/0.4 ML SYRINGE SC SCH (10:19)
[2019-09-06] MEDS: Aspirin 81 mg Enteric Coated Tablet PO SCH (10:20)
[2019-09-06] MEDS: Lisinopril 20 MG TAB PO SCH (10:20)
[2019-09-06] MEDS: Terazosin HCl 1 MG CAP PO SCH (22:01)
[2019-09-06] MEDS: Atorvastatin Calcium 40 MG TAB PO SCH (22:01)
[2019-09-06] MEDS: NIFEdipine XL 90 MG TAB PO SCH (22:02)
--- NOTE | 2019-09-07 07:28 | PDOC.FM ---
- Subjective Subjective: Pt states he is ubale to have a bm after straining. He would like something to help with this. Pt working with PT Denies CP, SOB Pt pending bed at [facility], approved already. - Objective MAR Reviewed: Yes Vital Signs & Weight: Vital Signs (12 hours) Temp Pulse Resp BP BP Pulse Ox 09/07/19 07:10 98.0 F 67 16 137/70 94 L 09/06/19 22:06 65 09/06/19 22:02 51 L 144/74 H 09/06/19 20:00 96 09/06/19 19:31 98.5 F 51 L 16 144/74 H 96 Weight Weight 73.284 kg Most Recent Monitor Data Heart Rate from ECG 78 NIBP 172/74 NIBP BP-Mean 106 Respiration from ECG 29 SpO2 96 I&O: 09/06/19 09/07/19 09/08/19 06:59 06:59 06:59 Intake Total 1500 Output Total 1200 Balance 300 Result Diagrams: 09/06/19 05:54 09/06/19 05:54 Phys Exam - Physical Examination Constitutional: NAD HEENT: moist MMs Neck: supple, full ROM Respiratory: no wheezing, no rales, no rhonchi, clear to auscultation bilateral Cardiovascular: RRR, no significant murmur, no rub Gastrointestinal: non-tender, no distention, positive bowel sounds Musculoskeletal: no edema Neurological: non-focal, moves all 4 limbs Psychiatric: normal affect, A&O x 3 Skin: no rash, normal turgor Dx/Plan (1) Hypertensive urgency Code(s): I16.0 - HYPERTENSIVE URGENCY Status: Resolved (2) Depression Code(s): F32.9 - MAJOR DEPRESSIVE DISORDER, SINGLE EPISODE, UNSPECIFIED Status : Acute (3) Hepatitis C Code(s): B19.20 - UNSPECIFIED VIRAL HEPATITIS C WITHOUT HEPATIC COMA Status: Acute - Plan Plan: Patient is a 69M with PMHx of Hep C, HTN, admitted for HTN urgency #HTN, improving. - Changed home regimen. - Now on Lisinopril 20mg, Nifedipine 90mg, and verapamil. - Moved nifedipine to pm dosing for more coverage, increased to 90mg - Discontinued Amlodipine 5mg. - Patient moved to medical floor 09/02 2/2 non-compliance with telemetry - Continues to be stable for discharge #Asymptomatic bacteruria - patient has history of resistant UTI, [facility] showed sensitivity only to Amikacin, Ceftaz/Avibactam and Imipenem. - Culture showing gram negative rods. - Continues to deny symptoms #New Cough -patient developed new cough -VSS -CXR chronic lung changes, but no acute process. -tessalon pearls -incentive spirometry #encephalopathy 2/2 HTN urgency, resolved - A&O x3 - CT head: enlarged ventricles, lacunar infarctions in each thalamus. - started atorvastatin 40 mg and asa 81 mg daily, 09/04. #Sebhorrheic dermatitis - on steroid cream/antifungal cream #H/o DM II - however a1c is 5.1 and his medication list did not include diabetic medications. - diet controlled. #H/o hep c, aware #Deconditioning -Patient is benefiting from PT while in the hospital, PT reports that patient is making progress to goals -Patient is stable for d/c and reportedly will need an infirmary bed to continue to work with PT to help with transfers Code status: DNAR PPx: lovenox Dispo: Patient is medically stable for d/c, however he is requiring assistance with transfers and some activities. Plan d/c to infirmary bed. CM states pending bed, already approved. Addendum - Attending - Attending Attestation Date/Time: 09/07/19 4152 I personally evaluated the patient and discussed the management with Dr. De La Torre. I agree with the History, Examination, Assessment and Plan documented above with any addition or exceptions noted below. Pt was able to move from bedside commode to the bed unassisted. He continues therapy to help with deconditioning. Has constipation, will add medication to help. Still waiting on infirmary bed.
[2019-09-07] MEDS: Lisinopril 20 MG TAB PO SCH (11:19)
[2019-09-07] MEDS ORDERED: Polyethylene Glycol 3350 17 GM Packet PO PRN (11:19)
[2019-09-07] MEDS ORDERED: Docusate Calcium (SURFAK) 240 MG CAP PO PRN (11:19)
[2019-09-07] MEDS: Aspirin 81 mg Enteric Coated Tablet PO SCH (11:19)
[2019-09-07] MEDS: Enoxaparin Sodium 40 MG/0.4 ML SYRINGE SC SCH (11:20)
[2019-09-07] MEDS: Senokot S 8.6-50 MG TAB PO PRN (17:46)
[2019-09-07] MEDS: Terazosin HCl 1 MG CAP PO SCH (21:42)
[2019-09-07] MEDS: Atorvastatin Calcium 40 MG TAB PO SCH (21:42)
[2019-09-07] MEDS: NIFEdipine XL 90 MG TAB PO SCH (21:42)
[2019-09-08] MEDS: Lisinopril 20 MG TAB PO SCH ×3 (08:05→13:48)
[2019-09-08] MEDS: Aspirin 81 mg Enteric Coated Tablet PO SCH (08:06)
[2019-09-08] MEDS: Enoxaparin Sodium 40 MG/0.4 ML SYRINGE SC SCH (08:07)
[2019-09-08] MEDS: Senokot S 8.6-50 MG TAB PO PRN (08:12)
--- NOTE | 2019-09-08 09:59 | PDOC.FM ---
- Subjective Subjective: pt states he is still unable to have a bm. Pt states he "feels terrible," all the time. He is working with Pt when they come by. Pending placement at [facility] bed for rehab. Denies SOB or CP. BP elevated overnight. - Objective MAR Reviewed: Yes Vital Signs & Weight: Vital Signs (12 hours) Temp Pulse Resp BP BP Pulse Ox 09/08/19 08:05 148/68 H 09/08/19 07:04 98.2 F 68 20 148/68 H 92 L 09/08/19 04:00 98.1 F 74 18 157/74 H 96 Weight Weight 73.618 kg Most Recent Monitor Data Heart Rate from ECG 78 NIBP 172/74 NIBP BP-Mean 106 Respiration from ECG 29 SpO2 96 I&O: 09/07/19 09/08/19 09/09/19 06:59 06:59 06:59 Intake Total 100 Output Total 150 Balance -50 Result Diagrams: 09/06/19 05:54 09/06/19 05:54 Phys Exam - Physical Examination Constitutional: NAD HEENT: moist MMs Neck: supple, full ROM Respiratory: no wheezing, no rales, no rhonchi, clear to auscultation bilateral Cardiovascular: RRR, no significant murmur, no rub Gastrointestinal: soft, non-tender, no distention, positive bowel sounds Musculoskeletal: no edema, pulses present Neurological: non-focal, moves all 4 limbs Psychiatric: normal affect, A&O x 3 Skin: no rash, normal turgor Dx/Plan (1) Hypertensive urgency Code(s): I16.0 - HYPERTENSIVE URGENCY Status: Resolved (2) Depression Code(s): F32.9 - MAJOR DEPRESSIVE DISORDER, SINGLE EPISODE, UNSPECIFIED Status : Acute (3) Hepatitis C Code(s): B19.20 - UNSPECIFIED VIRAL HEPATITIS C WITHOUT HEPATIC COMA Status: Acute - Plan Plan: Patient is a 69M with PMHx of Hep C, HTN, admitted for HTN urgency #HTN, improving. - Changed home regimen. - Now on Lisinopril 20mg--> 40mg 09/07, Nifedipine 90mg, and verapamil. - Moved nifedipine to pm dosing for more coverage, increased to 90mg. Increased lisinopril to 40 mg for more coverage. - Discontinued Amlodipine 5mg. - Patient moved to medical floor 09/02 2/2 non-compliance with telemetry - Continues to be stable for discharge #Asymptomatic bacteruria - patient has history of resistant UTI, [facility] showed sensitivity only to Amikacin, Ceftaz/Avibactam and Imipenem. - Culture showing gram negative rods. - Continues to deny symptoms #New Cough -patient developed new cough -VSS -CXR chronic lung changes, but no acute process. -tessalon pearls -incentive spirometry #encephalopathy 2/2 HTN urgency, resolved - A&O x3 - CT head: enlarged ventricles, lacunar infarctions in each thalamus. - started atorvastatin 40 mg and asa 81 mg daily, 09/04. #Sebhorrheic dermatitis - on steroid cream/antifungal cream #H/o DM II - however a1c is 5.1 and his medication list did not include diabetic medications. - diet controlled. #H/o hep c, aware #Deconditioning -Patient is benefiting from PT while in the hospital, PT reports that patient is making progress to goals -Patient is stable for d/c and [facility] to [facility] to work with PT to help with transfers Code status: DNAR PPx: lovenox Dispo: Patient is medically stable for d/c, however he is requiring assistance with transfers and some activities. [facility] states [facility] bed, already approved. Addendum - Attending - Attending Attestation Date/Time: 09/08/19 0593 I personally evaluated the patient and discussed the management with Dr. De aL Torre. I agree with the History, Examination, Assessment and Plan documented above with any addition or exceptions noted below. The patient is unchanged. Will continue multiple meds for constipation. He has not yet had a bowel movement. Pt's bp is mildly elevated but pt refused his lisinopril this morning per [employer]. [facility] due to [facility].
[2019-09-08] MEDS ORDERED: Lisinopril 20 MG TAB PO SCH (10:15)
[2019-09-08 10:29] VITALS: BMI 23.9
[2019-09-08] MEDS: NIFEdipine XL 90 MG TAB PO SCH (20:46)
[2019-09-08] MEDS: Terazosin HCl 1 MG CAP PO SCH (20:46)
[2019-09-08] MEDS: Atorvastatin Calcium 40 MG TAB PO SCH (20:46)
--- NOTE | 2019-09-09 07:25 | PDOC.FM ---
- Subjective Subjective: Pt refusing antihypertensive medications last night. This cause his pressure to increase overnight. Pt becomes agitated when questioned about why he refuses medications and states, " You cant make me do anything I don't want to do." He was admitted for HTN emergency and pressures have been stabilized on regimen here. However we are seeing a rise while he refuses medications. He states he will take his meds this morning. Pt c/o "feeling terrible." No acute overnight events other than states above about medication non- compliance. - Objective Vital Signs & Weight: Vital Signs (12 hours) Temp Pulse Resp BP BP Pulse Ox 09/09/19 06:59 98.3 F 63 16 158/69 H 95 09/08/19 20:46 77 09/08/19 20:00 97 09/08/19 19:35 98.2 F 77 16 168/76 H 97 Weight Admit Weight 74.1 kg Weight 72 kg Most Recent Monitor Data Heart Rate from ECG 78 NIBP 172/74 NIBP BP-Mean 106 Respiration from ECG 29 SpO2 96 I&O: 09/08/19 09/09/19 09/10/19 06:59 06:59 06:59 Intake Total 100 2196 Output Total 150 Balance -50 2196 Result Diagrams: 09/06/19 05:54 09/06/19 05:54 Phys Exam - Physical Examination Constitutional: NAD HEENT: moist MMs Neck: supple, full ROM Respiratory: no wheezing, no rales, no rhonchi, clear to auscultation bilateral Cardiovascular: RRR, no rub Gastrointestinal: soft, non-tender, no distention Musculoskeletal: no edema Neurological: non-focal, moves all 4 limbs Psychiatric: normal affect Skin: normal turgor Dx/Plan (1) Hypertensive urgency Code(s): I16.0 - HYPERTENSIVE URGENCY Status: Resolved (2) Depression Code(s): F32.9 - MAJOR DEPRESSIVE DISORDER, SINGLE EPISODE, UNSPECIFIED Status : Acute (3) Hepatitis C Code(s): B19.20 - UNSPECIFIED VIRAL HEPATITIS C WITHOUT HEPATIC COMA Status: Acute - Plan Plan: Patient is a 69M with PMHx of Hep C, HTN, admitted for HTN urgency #HTN, improving. - Changed home regimen. Pt non-compliant with regimen in hospital. Discussed with pt who states he will take medications now. - Now on Lisinopril 20mg--> 40mg 09/07, Nifedipine 90mg, and verapamil. - Moved nifedipine to pm dosing for more coverage, increased to 90mg. Increased lisinopril to 40 mg for more coverage. - Discontinued Amlodipine 5mg. - Patient moved to medical floor 09/02 2/2 non-compliance with telemetry - Continues to be stable for discharge #Asymptomatic bacteruria - patient has history of resistant UTI, culture from [facility] recent [facility] showed sensitivity only to Amikacin, Ceftaz/Avibactam and Imipenem. - Culture showing gram negative rods. - Continues to deny symptoms #New Cough -patient developed new cough -VSS -CXR chronic lung changes, but no acute process. -tessalon pearls -incentive spirometry #encephalopathy 2/2 HTN urgency, resolved - A&O x3 - CT head: enlarged ventricles, lacunar infarctions in each thalamus. - started atorvastatin 40 mg and asa 81 mg daily, 09/04. #Sebhorrheic dermatitis - on steroid cream/antifungal cream #H/o DM II - however a1c is 5.1 and his medication list did not include diabetic medications. - diet controlled. #H/o hep c, aware #Deconditioning -Patient is benefiting from PT while in the hospital, PT reports that patient is making progress to goals -Patient is stable for d/c and reportedly [facility] to continue to work with PT to help with transfers Code status: DNAR PPx: lovenox Dispo: Patient is medically stable for d/c, however he is requiring assistance with transfers and some activities. Plan d/c to [facility]irm[facility] bed. CM states pending bed, already approved however day by day assessment on bed availability. Pt has been non-compliant with medication regimen in hospital. Addendum - Attending - Attending Attestation Date/Time: 09/09/19 7062 I personally evaluated the patient and discussed the management with Dr. De La Torre. I agree with the History, Examination, Assessment and Plan documented above with any addition or exceptions noted below. Patient refused medications both in the morning and in the evening yesterday. The patient states he doesn't remember this and when we tried to explain why it was important to control his blood pressure he raised his voice and said he wouldn't do anything he didn't want to do and he just wants to . Will see if pt will take meds today. Still waiting on [facility] bed.
[2019-09-09] MEDS: Lisinopril 20 MG TAB PO SCH (08:43)
[2019-09-09] MEDS: Aspirin 81 mg Enteric Coated Tablet PO SCH (08:43)
[2019-09-09] MEDS: Enoxaparin Sodium 40 MG/0.4 ML SYRINGE SC SCH (08:45)
[2019-09-09] MEDS: Atorvastatin Calcium 40 MG TAB PO SCH (23:16)
[2019-09-09] MEDS: NIFEdipine XL 90 MG TAB PO SCH (23:17)
[2019-09-09] MEDS: Terazosin HCl 1 MG CAP PO SCH (23:22)
[2019-09-10] MEDS: Lisinopril 20 MG TAB PO SCH (07:57)
[2019-09-10] MEDS: Aspirin 81 mg Enteric Coated Tablet PO SCH (07:57)
[2019-09-10] MEDS: Enoxaparin Sodium 40 MG/0.4 ML SYRINGE SC SCH (07:57)
--- NOTE | 2019-09-10 09:33 | PDOC.FM ---
- Subjective Subjective: pt sleeping upon entry to room. no acute overnight events vitals stable took medications yesterday and this morning upon awakening. no complaints - Objective MAR Reviewed: Yes Vital Signs & Weight: Vital Signs (12 hours) Temp Pulse Resp BP BP Pulse Ox 09/10/19 08:31 98.3 F 66 18 117/63 93 L 09/10/19 08:00 96 09/10/19 07:57 179/78 H 09/09/19 23:17 60 179/78 H Weight Admit Weight 74.1 kg Weight 72 kg Most Recent Monitor Data Heart Rate from ECG 78 NIBP 172/74 NIBP BP-Mean 106 Respiration from ECG 29 SpO2 96 I&O: 09/09/19 09/10/19 09/11/19 06:59 06:59 06:59 Intake Total 2196 300 Balance 2196 300 Result Diagrams: 09/06/19 05:54 09/06/19 05:54 Phys Exam - Physical Examination Constitutional: NAD HEENT: moist MMs Neck: supple Respiratory: no wheezing, no rales, no rhonchi, clear to auscultation bilateral Cardiovascular: RRR Gastrointestinal: soft, non-tender, no distention Musculoskeletal: no edema Neurological: non-focal, moves all 4 limbs Psychiatric: normal affect Skin: normal turgor Dx/Plan (1) Hypertensive urgency Code(s): I16.0 - HYPERTENSIVE URGENCY Status: Resolved (2) Depression Code(s): F32.9 - MAJOR DEPRESSIVE DISORDER, SINGLE EPISODE, UNSPECIFIED Status : Acute (3) Hepatitis C Code(s): B19.20 - UNSPECIFIED VIRAL HEPATITIS C WITHOUT HEPATIC COMA Status: Acute - Plan Plan: Patient is a 69M with PMHx of Hep C, HTN, admitted for HTN urgency #HTN, improving. - Changed home regimen. Pt non-compliant with regimen in hospital yesterday. Discussed with pt who states he will take medications now. - Now on Lisinopril 20mg--> 40mg 09/07, Nifedipine 90mg, and verapamil. - Moved nifedipine to pm dosing for more coverage, increased to 90mg. Increased lisinopril to 40 mg for more coverage. - Discontinued Amlodipine 5mg. - Patient moved to medical floor 09/02 2/ non-compliance with telemetry - Continues to be stable for discharge #Asymptomatic bacteruria - patient has history of resistant UTI, culture from [facility] recent [facility] showed sensitivity only to Amikacin, Ceftaz/Avibactam and Imipenem. - Culture showing gram negative rods. - Continues to deny symptoms #New Cough -patient developed new cough -VSS -CXR chronic lung changes, but no acute process. -tessalon pearls -incentive spirometry #encephalopathy 2/2 HTN urgency, resolved - A&O x3 - CT head: enlarged ventricles, lacunar infarctions in each thalamus. - started atorvastatin 40 mg and asa 81 mg daily, 09/04. #Sebhorrheic dermatitis - on steroid cream/antifungal cream #H/o DM II - however a1c is 5.1 and his medication list did not include diabetic medications. - diet controlled. #H/o hep c, aware #Deconditioning -Patient is benefiting from PT while in the hospital, PT reports that patient is making progress to goals -Patient is stable for d/c and reportedly will need an [facility] bed to continue to work with PT to help with transfers Code status: DNAR PPx: lovenox Dispo: Patient is medically stable for d/c, however he is requiring assistance with transfers and some activities. Plan d/c to [facility]irm[facility] bed. CM states pending bed, already approved however day by day assessment on bed availability. Pt has been non-compliant with medication regimen in hospital off and on. Took medications as prescribed overnight. Addendum - Attending - Attending Attestation Date/Time: 09/10/19 1312 I personally evaluated the patient and discussed the management with Dr. De La Torre. I agree with the History, Examination, Assessment and Plan documented above with any addition or exceptions noted below. The patient is stable. He did take his blood pressure mediations yesterday. He is still waiting on infirmary bed.
[2019-09-10] MEDS: Atorvastatin Calcium 40 MG TAB PO SCH (22:17)
[2019-09-10] MEDS: NIFEdipine XL 90 MG TAB PO SCH (22:18)
[2019-09-10] MEDS: Terazosin HCl 1 MG CAP PO SCH (22:18)
[2019-09-11] MEDS ORDERED: Ondansetron ORAL SOLN. 4 MG/5 ML UDCUP PO PRN (03:01)
[2019-09-11] MEDS: Ondansetron ODT 4 MG TAB PO PRN ×2 (03:33→10:48)
[2019-09-11] MEDS ORDERED: Meclizine HCl 12.5 MG TAB PO PRN (04:30)
[2019-09-11] MEDS: Acetaminophen 650 MG/20.3 ML UDCUP PO PRN ×2 (04:41→12:33)
[2019-09-11] MEDS: Meclizine HCl 25 MG TAB PO PRN ×2 (05:45→21:50)
--- NOTE | 2019-09-11 06:23 | PDOC.FM ---
- Subjective Subjective: Pt states he "feels terrible, and doesn't want to live." he refused to work with PT 09/09. he is taking his BP medications prescribed now. BP have been stable. denies CP, SOB. - Objective MAR Reviewed: Yes Vital Signs & Weight: Vital Signs (12 hours) Temp Pulse Resp BP Pulse Ox 09/10/19 19:24 96 09/10/19 19:13 98 F 60 16 147/72 H 96 Weight Admit Weight 74.1 kg Weight 69.672 kg Most Recent Monitor Data Heart Rate from ECG 78 NIBP 172/74 NIBP BP-Mean 106 Respiration from ECG 29 SpO2 96 I&O: 09/09/19 09/10/19 09/11/19 06:59 06:59 06:59 Intake Total 2196 300 960 Balance 2196 300 960 Result Diagrams: 09/06/19 05:54 09/06/19 05:54 Phys Exam - Physical Examination Constitutional: NAD HEENT: moist MMs, sclera anicteric Neck: no nodes, supple Respiratory: no wheezing, clear to auscultation bilateral Cardiovascular: RRR Gastrointestinal: soft, no distention Musculoskeletal: no edema Neurological: moves all 4 limbs Psychiatric: A&O x 3 Skin: normal turgor Dx/Plan (1) Hypertensive urgency Code(s): I16.0 - HYPERTENSIVE URGENCY Status: Resolved (2) Depression Code(s): F32.9 - MAJOR DEPRESSIVE DISORDER, SINGLE EPISODE, UNSPECIFIED Status : Acute (3) Hepatitis C Code(s): B19.20 - UNSPECIFIED VIRAL HEPATITIS C WITHOUT HEPATIC COMA Status: Acute - Plan Plan: Patient is a 69M with PMHx of Hep C, HTN, admitted for HTN urgency #HTN, improving. - Changed home regimen. Pt non-compliant with regimen in hospital yesterday. Discussed with pt who states he will take medications now. - Now on Lisinopril 20mg--> 40mg 09/07, Nifedipine 90mg, and verapamil. - Moved nifedipine to pm dosing for more coverage, increased to 90mg. Increased lisinopril to 40 mg for more coverage. - Discontinued Amlodipine 5mg. - Patient moved to medical floor 09/02 2/ non-compliance with telemetry - Continues to be stable for discharge #Asymptomatic bacteruria - patient has history of resistant UTI, culture from most recent at the [facility] showed sensitivity only to Amikacin, Ceftaz/Avibactam and Imipenem. - Culture showing gram negative rods. - Continues to deny symptoms #New Cough -patient developed new cough -VSS -CXR chronic lung changes, but no acute process. -tessalon pearls -incentive spirometry #encephalopathy 2/2 HTN urgency, resolved - A&O x3 - CT head: enlarged ventricles, lacunar infarctions in each thalamus. - started atorvastatin 40 mg and asa 81 mg daily, 09/04. #Sebhorrheic dermatitis - on steroid cream/antifungal cream #H/o DM II - however a1c is 5.1 and his medication list did not include diabetic medications. - diet controlled. #H/o hep c, aware #Deconditioning -Patient is benefiting from PT while in the hospital, PT reports that patient is making progress to goals -Patient is stable for d/c and reportedly will need an infirmary bed to continue to work with PT to help with transfers Code status: DNAR PPx: lovenox Dispo: Patient is medically stable for d/c, however he is requiring assistance with transfers and some activities. Plan d/c to [facility]irmary bed. CM states pending bed, already approved however day by day assessment on bed availability. Pt has been non-compliant with medication regimen in hospital off and on. Took medications as prescribed overnight. Pt refused pt 09/09 with staff. Addendum - Attending - Attending Attestation Date/Time: 09/11/19 3290 I personally evaluated the patient and discussed the management with Dr. De La Torre. I agree with the History, Examination, Assessment and Plan documented above with any addition or exceptions noted below. Pt today states he wants his blood pressure high because he wants to . Systolic in the 140's. He did take his meds yesterday but refused PT. Still waiting on infirmary bed.
[2019-09-11] MEDS: Lisinopril 20 MG TAB PO SCH (08:07)
[2019-09-11] MEDS: Aspirin 81 mg Enteric Coated Tablet PO SCH (08:07)
[2019-09-11] MEDS: Enoxaparin Sodium 40 MG/0.4 ML SYRINGE SC SCH (08:09)
[2019-09-11] MEDS: Atorvastatin Calcium 40 MG TAB PO SCH (21:50)
[2019-09-11] MEDS: Terazosin HCl 1 MG CAP PO SCH (21:50)
[2019-09-11] MEDS ORDERED: NIFEdipine XL 60 MG TAB PO SCH (22:30)
[2019-09-11] MEDS: NIFEdipine XL 90 MG TAB PO SCH (23:40)
[2019-09-12] MEDS: Acetaminophen 650 MG/20.3 ML UDCUP PO PRN (05:18)
--- NOTE | 2019-09-12 07:21 | PDOC.FM ---
- Subjective Subjective: Pt refused to work with Pt yesterday again. Re-eval for PT pending today. Pt took BP medications as prescribed and BP's normalizing. Pt resting well. had low HR nurse paged for overnight. no need to hold BP medications as they are long acting. PT was asleep and asymptomatic with HR in 50-70. - Objective MAR Reviewed: Yes Vital Signs & Weight: Vital Signs (12 hours) Temp Pulse Resp BP Pulse Ox 09/12/19 07:17 98.0 F 74 18 130/70 93 L 09/12/19 04:11 97.7 F 71 20 127/65 92 L 09/11/19 20:00 97.8 F 71 20 153/65 H 92 L 09/11/19 19:44 94 L 09/11/19 19:25 98.0 F 51 L 20 126/69 94 L Weight Admit Weight 74.1 kg Weight 70.261 kg Most Recent Monitor Data Heart Rate from ECG 78 NIBP 172/74 NIBP BP-Mean 106 Respiration from ECG 29 SpO2 96 I&O: 09/11/19 09/12/19 09/13/19 06:59 06:59 06:59 Intake Total 960 1200 Balance 960 1200 Result Diagrams: 09/06/19 05:54 09/06/19 05:54 Phys Exam - Physical Examination Constitutional: NAD HEENT: moist MMs Neck: supple, full ROM Respiratory: no wheezing, no rales, no rhonchi, clear to auscultation bilateral Cardiovascular: RRR Gastrointestinal: soft, non-tender, no distention, positive bowel sounds Musculoskeletal: no edema, pulses present Neurological: non-focal, moves all 4 limbs Psychiatric: normal affect Skin: no rash, normal turgor Dx/Plan (1) Hypertensive urgency Code(s): I16.0 - HYPERTENSIVE URGENCY Status: Resolved (2) Depression Code(s): F32.9 - MAJOR DEPRESSIVE DISORDER, SINGLE EPISODE, UNSPECIFIED Status : Acute (3) Hepatitis C Code(s): B19.20 - UNSPECIFIED VIRAL HEPATITIS C WITHOUT HEPATIC COMA Status: Acute - Plan Plan: Patient is a 69M with PMHx of Hep C, HTN, admitted for HTN urgency #HTN, improving. - Changed home regimen. Pt compliant with bp medications the last couple of days. Discussed with pt who states he will follow medication regimen. - Now on Lisinopril 20mg--> 40mg 09/07, Nifedipine 90mg, and verapamil. - Moved nifedipine to pm dosing for more coverage, increased to 90mg. Increased lisinopril to 40 mg for more coverage. - Discontinued Amlodipine 5mg. - Patient moved to medical floor 09/02 2/2 non-compliance with telemetry - Continues to be stable for discharge #Asymptomatic bacteruria - patient has history of resistant UTI, culture [facility] recent [facility] showed sensitivity only to Amikacin, Ceftaz/Avibactam and Imipenem. - Culture showing gram negative rods. - Continues to deny symptoms #encephalopathy 2/2 HTN urgency, resolved - A&O x3 - CT head: enlarged ventricles, lacunar infarctions in each thalamus. - started atorvastatin 40 mg and asa 81 mg daily, 09/04. #Sebhorrheic dermatitis - on steroid cream/antifungal cream #H/o DM II - however a1c is 5.1 and his medication list did not include diabetic medications. - diet controlled. #H/o hep c, aware #Deconditioning -Patient is benefiting from PT while in the hospital, PT reports that patient is making progress to goals -Patient is stable for d/c and reportedly will need an infirmary bed to continue to work with PT to help with transfers Code status: DNAR PPx: lovenox Dispo: Patient is medically stable for d/c, however he is requiring assistance with transfers and some activities. Plan d/c to infirmary bed. CM states pending bed, already approved however day by day assessment on bed availability. Pt has been non-compliant with medication regimen in hospital off and on. Took medications as prescribed overnight. Pt refused pt 09/09 and 09/10 with staff. Addendum - Attending - Attending Attestation Date/Time: 09/12/19 1221 I personally evaluated the patient and discussed the management with Dr. D eLa Torre. I agree with the History, Examination, Assessment and Plan documented above with any addition or exceptions noted below. Patient awaiting infirmary bed but refusing to work with PT. He has remained stable for discharge for over 1 week. Will work to get him back to long-term.
[2019-09-12] MEDS: Aspirin 81 mg Enteric Coated Tablet PO SCH (08:52)
[2019-09-12] MEDS: Enoxaparin Sodium 40 MG/0.4 ML SYRINGE SC SCH (08:53)
[2019-09-12] MEDS: Lisinopril 20 MG TAB PO SCH (08:53)
[2019-09-12] MEDS: Atorvastatin Calcium 40 MG TAB PO SCH (20:37)
[2019-09-12] MEDS: Terazosin HCl 1 MG CAP PO SCH (20:38)
[2019-09-12] MEDS: NIFEdipine XL 90 MG TAB PO SCH (20:38)
[2019-09-13] MEDS: NIFEdipine XL 90 MG TAB PO SCH ×2 (01:10→20:24)
[2019-09-13] MEDS: Terazosin HCl 1 MG CAP PO SCH ×2 (01:11→20:24)
[2019-09-13] MEDS: Acetaminophen 325 MG/10.15 ML UDCUP PO PRN ×2 (01:36→07:49)
--- NOTE | 2019-09-13 06:48 | PDOC.FM ---
- Subjective Subjective: Pt reports stable. refused BP medications initially overnight. c/o pain all over last night. nurse talked him into taking bp medications in the middle of the night with some tylenol for pain. Pt's bp's elevated overnight. still c/o diffuse pain. given a heating pad. - Objective MAR Reviewed: Yes Vital Signs & Weight: Vital Signs (12 hours) Temp Pulse Resp BP BP Pulse Ox 09/13/19 05:00 97.4 F L 63 18 159/68 H 96 09/13/19 01:10 68 171/76 H 09/13/19 01:00 98.6 F 68 18 171/76 H 95 09/12/19 20:38 120/65 Weight Admit Weight 74.1 kg Weight 72.603 kg Most Recent Monitor Data Heart Rate from ECG 78 NIBP 172/74 NIBP BP-Mean 106 Respiration from ECG 29 SpO2 96 I&O: 09/11/19 09/12/19 09/13/19 06:59 06:59 06:59 Intake Total 960 1200 1150 Balance 960 1200 1150 Result Diagrams: 09/06/19 05:54 09/06/19 05:54 Phys Exam - Physical Examination Constitutional: NAD HEENT: moist MMs Neck: supple, full ROM Respiratory: no wheezing, no rales, no rhonchi, clear to auscultation bilateral Cardiovascular: RRR Gastrointestinal: soft, no distention Musculoskeletal: no edema Neurological: non-focal, moves all 4 limbs Psychiatric: A&O x 3 Skin: no rash, normal turgor Dx/Plan (1) Hypertensive urgency Code(s): I16.0 - HYPERTENSIVE URGENCY Status: Resolved (2) Depression Code(s): F32.9 - MAJOR DEPRESSIVE DISORDER, SINGLE EPISODE, UNSPECIFIED Status : Acute (3) Hepatitis C Code(s): B19.20 - UNSPECIFIED VIRAL HEPATITIS C WITHOUT HEPATIC COMA Status: Acute (4) Noncompliance by refusing intervention or support Code(s): Z53.29 - PROC/TRTMT NOT CRD OUT BEC PT DECISION FOR OTH REASONS Status: Acute - Plan Plan: Patient is a 69M with PMHx of Hep C, HTN, admitted for HTN urgency #HTN, improving. - Changed home regimen. Pt has intermittent compliance with bp medications the last couple of days. Discussed with pt who states he will follow medication regimen. - Now on Lisinopril 20mg--> 40mg 09/07, Nifedipine 90mg, and verapamil. - Moved nifedipine to pm dosing for more coverage, increased to 90mg. Increased lisinopril to 40 mg for more coverage. - Discontinued Amlodipine 5mg. - Patient moved to medical floor 09/02 2/2 non-compliance with telemetry - Continues to be stable for discharge. Spoke with utilation review 09/11 who states he needs infirmary bed on d/c, and think he will get a bed soon. #Asymptomatic bacteruria - patient has history of resistant UTI, [facility] showed sensitivity only to Amikacin, Ceftaz/Avibactam and Imipenem. - Culture showing gram negative rods. - Continues to deny symptoms #encephalopathy 2/2 HTN urgency, resolved - A&O x3 - CT head: enlarged ventricles, lacunar infarctions in each thalamus. - started atorvastatin 40 mg and asa 81 mg daily, 09/04. #Sebhorrheic dermatitis - on steroid cream/antifungal cream #H/o DM II - however a1c is 5.1 and his medication list did not include diabetic medications. - diet controlled. #H/o hep c, aware #Deconditioning -Patient is benefiting from PT while in the hospital, PT reports that patient is making progress to goals -Patient is stable for d/c and reportedly will need an infirmary bed to continue to work with PT to help with transfers - Pt refuses to work with PT inpt. Code status: DNAR PPx: lovenox Dispo: Patient is medically stable for d/c, however he is requiring assistance with transfers and some activities. Plan d/c to infirmary bed. CM states pending bed, already approved however day by day assessment on bed availability. Pt has been non-compliant with medication regimen in hospital off and on. Took medications as prescribed overnight. Pt refused pt 09/09 and 09/10 and 09/11 with staff. Addendum - Attending - Attending Attestation Date/Time: 09/13/19 7620 I personally evaluated the patient and discussed the management with Dr. De La Torre. I agree with the History, Examination, Assessment and Plan documented above with any addition or exceptions noted below. Stable for discharge. Awaiting infirmary bed placement as for the last 10 days.
[2019-09-13] MEDS: Lisinopril 20 MG TAB PO SCH (07:50)
[2019-09-13] MEDS: Aspirin 81 mg Enteric Coated Tablet PO SCH (07:50)
[2019-09-13] MEDS: Enoxaparin Sodium 40 MG/0.4 ML SYRINGE SC SCH ×2 (07:51→08:00)
[2019-09-13] MEDS: Ondansetron ODT 4 MG TAB PO PRN (08:56)
[2019-09-13] MEDS ORDERED: Acetaminophen 650 MG/20.3 ML UDCUP PO PRN (17:43)
[2019-09-13] MEDS ORDERED: Acetaminophen 325 MG/10.15 ML UDCUP PO PRN (18:00)
[2019-09-13] MEDS: Atorvastatin Calcium 40 MG TAB PO SCH (20:25)
[2019-09-14] MEDS: Ondansetron ODT 4 MG TAB PO PRN ×2 (01:27→08:49)
[2019-09-14] MEDS ORDERED: Acetaminophen 325 MG/10.15 ML UDCUP PO PRN (02:15)
[2019-09-14] MEDS ORDERED: Acetaminophen 650 MG/20.3 ML UDCUP PO PRN (02:15)
[2019-09-14 07:22] VITALS: BP 133/65; TEMP 98.7
--- NOTE | 2019-09-14 08:09 | PDOC.FM ---
- Subjective Subjective: Pt sleeping no acute overnight events took medications yesterday c/o back pain. bps improved. - Objective MAR Reviewed: Yes Vital Signs & Weight: Vital Signs (12 hours) Temp Pulse Resp BP BP Pulse Ox 09/14/19 07:21 98.7 F 82 20 133/65 93 L 09/14/19 01:35 98.3 F 64 20 105/62 94 L 09/13/19 20:24 62 149/70 H Weight Admit Weight 74.1 kg Weight 70.959 kg Most Recent Monitor Data Heart Rate from ECG 78 NIBP 172/74 NIBP BP-Mean 106 Respiration from ECG 29 SpO2 96 I&O: 09/13/19 09/14/19 09/15/19 06:59 06:59 06:59 Intake Total 1150 980 Output Total 150 Balance 1150 830 Result Diagrams: 09/06/19 05:54 09/06/19 05:54 Phys Exam - Physical Examination Constitutional: NAD HEENT: moist MMs Neck: supple, full ROM Respiratory: no wheezing, no rales, no rhonchi, clear to auscultation bilateral Cardiovascular: RRR, no significant murmur Gastrointestinal: soft, non-tender, positive bowel sounds Musculoskeletal: no edema, pulses present Neurological: non-focal, moves all 4 limbs Psychiatric: A&O x 3 Skin: normal turgor, cap refill <2 seconds Dx/Plan (1) Hypertensive urgency Code(s): I16.0 - HYPERTENSIVE URGENCY Status: Resolved (2) Depression Code(s): F32.9 - MAJOR DEPRESSIVE DISORDER, SINGLE EPISODE, UNSPECIFIED Status : Acute (3) Hepatitis C Code(s): B19.20 - UNSPECIFIED VIRAL HEPATITIS C WITHOUT HEPATIC COMA Status: Acute (4) Noncompliance by refusing intervention or support Code(s): Z53.29 - PROC/TRTMT NOT CRD OUT BEC PT DECISION FOR OTH REASONS Status: Acute - Plan Plan: Patient is a 69M with PMHx of Hep C, HTN, admitted for HTN urgency #HTN, improving. - Changed home regimen. Pt has intermittent compliance with bp medications the last couple of days. Discussed with pt who states he will follow medication regimen. - Now on Lisinopril 20mg--> 40mg 09/07, Nifedipine 90mg, and verapamil. - Moved nifedipine to pm dosing for more coverage, increased to 90mg. Increased lisinopril to 40 mg for more coverage. - Discontinued Amlodipine 5mg. - Patient moved to medical floor 09/02 2/ non-compliance with telemetry - Continues to be stable for discharge. Spoke with utilization review 09/11 who states [facility], and think he will get a bed soon. Pt has been cleared for d/c medically for over 10 days now. Awaiting [facility] bed. #Asymptomatic bacteruria - patient has history of resistant UTI, culture from most recent [facility] the [facility] showed sensitivity only to Amikacin, Ceftaz/Avibactam and Imipenem. - Culture showing gram negative rods. - Continues to deny symptoms #encephalopathy 2/2 HTN urgency, resolved - A&O x3 - CT head: enlarged ventricles, lacunar infarctions in each thalamus. - started atorvastatin 40 mg and asa 81 mg daily, 09/04. #Sebhorrheic dermatitis - on steroid cream/antifungal cream #H/o DM II - however a1c is 5.1 and his medication list did not include diabetic medications. - diet controlled. #H/o hep c, aware #Deconditioning -Patient is benefiting from PT while in the hospital, PT reports that patient is making progress to goals -Patient is stable for d/c and [facility] to work with PT to help with transfers - Pt refuses to work with PT inpt. Code status: DNAR PPx: lovenox Dispo: Patient is medically stable for d/c, however he is requiring assistance with transfers and some activities. Plan d/c to [facility] bed. CM states pending bed, already approved however day by day assessment on bed availability. Pt has been non-compliant with medication regimen in hospital off and on. Took medications as prescribed overnight. Pt refused pt 09/09 and 09/10 and 09/11 with staff. Re-eval for PT 09/12 states recommending PT with [facility]. Addendum - Attending - Attending Attestation Date/Time: 09/14/19 9368 I personally evaluated the patient and discussed the management with Dr. De La Torre. I agree with the History, Examination, Assessment and Plan documented above with any addition or exceptions noted below. Stable for discharge as he has been for over a week and a half.
[2019-09-14] MEDS: Lisinopril 20 MG TAB PO SCH (08:51)
[2019-09-14] MEDS: Aspirin 81 mg Enteric Coated Tablet PO SCH (08:52)
[2019-09-14] MEDS: Enoxaparin Sodium 40 MG/0.4 ML SYRINGE SC SCH (08:52)
--- NOTE | 2019-09-15 13:19 | DIS ---
DATE OF ADMISSION: 08/31/2019 DATE OF DISCHARGE: 09/14/2019 RESIDENT: Angélica De La Torre DO ADMITTING ATTENDING: Ez Barber MD DISCHARGE ATTENDING: Ramirez Meade MD CONSULTS: Physical Therapy and Occupational Therapy and Case Management. PROCEDURE: CT brain, which showed excessive ventricular dilation, lacunar infarcts of unknown age. CTA aortic dissection protocol which showed atherosclerotic vascular calcifications and plaque in the thoracic and abdominal aorta, inflamed nodes of the abdomen, mild bilateral hydronephrosis, nonobstructive right renal calculus. Echo, which showed an EF of 60% to 65%. Grade 1/3 diastolic dysfunction and LVH, aortic valve sclerosis, mild aortic regurgitation, tricuspid regurgitation, and mitral regurgitation. DIAGNOSES: 1. Hypertensive urgency, improved. 2. Asymptomatic bacteriuria. 3. Encephalopathy, improved secondary to hypertensive urgency, resolved. 4. Seborrheic dermatitis. 5. History of diabetes mellitus, type 2. 6. History of hepatitis C. 7. Deconditioning. DISCHARGE MEDICATIONS: 1. Atorvastatin 40 mg p.o. at bedtime. 2. Lisinopril 20 mg p.o. daily. 3. Nifedipine 90 mg p.o. at bedtime. 4. Aspirin 81 mg p.o. daily. 5. Lotrisone cream 1 g topical b.i.d. 6. Hydrocortisone cream one application topical b.i.d. 7. Terazosin 2 mg p.o. at bedtime. 8. Verapamil 240 mg p.o. daily. DISCONTINUED MEDICATIONS: Clonidine. HISTORY OF PRESENT ILLNESS/HOSPITAL COURSE: Casimiro Sebastian is a 69-year-old male, who resides in custodial, who came into the emergency department due to encephalopathy and was found to be in hypertensive urgency. He was started on a Cardene drip. His blood pressure improved and then he was started on a p.o. regimen, which was eventually titrated to normal blood pressure ranges with the dosing of 90 mg Procardia p.o. at bedtime, 40 mg p.o. lisinopril q.a.m. and continue his home 240 mg verapamil p.o. daily. With this regimen when he is compliant with his medication, he usually runs between 150 to 130 over 60s to 70s. The patient has been noncompliant intermittently throughout his hospital stay with blood pressure medication regimen as well as working with physical and occupational therapy as he refuses much of the care that we give him. He has been stable for discharge from [facility] back to [facility] for 11 days now. However, we have been waiting for an infirmary throughout the process. Today, on 09/13, we were given the call that [facility] bed was available for this patient. He was discharged upon that news. DISPOSITION: Stable upon discharge with blood pressure controlled when taking medications. DISCHARGE INSTRUCTIONS: Location: To [facility] bed. Diet: Heart healthy. Activity: PT/OT per recommendations. Follow up with primary care physician in 1 week's time. Job ID: [id number]
--- NOTE | 2019-09-16 07:01 | PQF ---
CLINICAL DOCUMENTATION CLARIFICATION FORM: Dear :Ramirez Elizabeth Date / Time: 09/16/19 0700 Please exercise your independent, professional judgment in responding to the clarification form. Clinical indicators are provided on the bottom of this form for your review Please check appropriate box(es): [ ] Acute Lacunar Infarct [ ] Aborted CVA [ ] History of CVA [ X] Other diagnosis _Hypertensive emergency with encephalopathy [ ] Unable to determine Physician Signature: Date/Time: For continuity of documentation, please document condition throughout progress notes and discharge summary. Thank You. To be completed by CDI/Coding staff for physician review: Present Clinical Indicators - Signs / Symptoms / Labs Results and Location in Medical Record [X] CT Brain: Low Density foci are seen in each thalamus related to lacunar infarctions if indeterminate age Imaging Dr Plaza 08/29 [X] BP 223/101, Pulse 64, Resp 18, Temp 98.3 Vital signs 08/30 [X] Pt sent to unit for uncontrolled HTN, UTI and AMS ED notes p3 08/30 [X] GCS 15 ED notes p3 08/30 [X] over past several days has developed altered mental status H&P p1 08/30 Dr Sykes [X] HTN emergency H&P p4 08/30 Dr Sykes [X] Encephalopathy 2/2 HTN H&P p4 08/30 Dr Sykes Present Risk Factors Results and Location in Medical Record [X] 69 year-old Male H&P p1 08/30 Dr Sykes [X] HTN H&P p1 08/30 Dr Sykes [X] Smoker H&P p1 08/30 Dr Sykes [X] DM H&P p4 08/30 Dr Sykes Present Treatments Results and Location in Medical Record [X] IV Nicardipine HCI 25 mg MAR 08/30 [X] Aspirin 81 mg oral APR 15 [X] Lipitor 40 mg oral APR 15 [X] IV Lactated Ringers 1L [X] CT Brain Imaging Dr Plaza 08/29 CDS/Residential Care Officer Signature: Latrice Overton Phone #: [phone] Date/Time: 09/16/19 07 This is a permanent part of the Medical Record [facility]
== END 2019-09-14 14:28 | DRG 78 ==
LOC: ERS 20:34 → CCU 08-31 00:42 → 2SE 08-31 11:53 → T4-A 09-03 18:08
PROVIDERS: ADMIT Emergency Medicine; ATTEND Emergency Medicine
DX: I67.4 Hypertensive encephalopathy (principal); I16.1 Hypertensive emergency; I10 Essential (primary) hypertension; F17.210 Nicotine dependence, cigarettes, uncomplicated; R82.71 Bacteriuria; F32.9 Major depressive disorder, single episode, unspecified; B19.20 Unspecified viral hepatitis C without hepatic coma; L21.9 Seborrheic dermatitis, unspecified; E11.9 Type 2 diabetes mellitus without complications; Z20.828 Contact with and (suspected) exposure to other viral communicable diseases; I08.3 Combined rheumatic disorders of mitral, aortic and tricuspid valves; Z66 Do not resuscitate; R05 Cough; Z91.19 Patient's noncompliance with other medical treatment and regimen; Z91.14 Patient's other noncompliance with medication regimen; Z79.899 Other long term (current) drug therapy
CPT/HCPCS: 36415; 36416; 70450; 71045; 71275; 72191; 74175; 80053; 81003; 81015; 83036; 83605; 83735; 83880; 84145; 84443; 84484; 85007; 85025; 85027; 87040; 87077; 87086; 87149; 87186; 93306; 96361; 96365; 96366; 96368; J0360; J0696; J1650; J2270; J3370; J7050; Q0162; Q9967; U0002